=== PATIENT | female | born 1950 | race Caucasian/White ===

== ENCOUNTER 2017-06-03 11:03 | Inpatient (IN) | payer OTHER, MEDICARE ==
[2017-06-03] VITALS (10 sets, daily range): BP systolic 112–253; BP diastolic 63–118; PULSE 83–117; RESP 16–24; TEMP 98.5–98.7; O2SAT 96–100
[~2017-06-03] VITALS: Ht 175.3 cm; Wt 129.0 kg
--- NOTE | 2017-06-03 12:01 | RADRPT ---
EXAM DATE/TIME: 06/03/2017 11:49 [facility] COMPARISON: No previous studies available for comparison. INDICATIONS : Syncope, dizzy MEDICAL HISTORY : None. SURGICAL HISTORY : None. ENCOUNTER: Initial ACUITY: 1 day PAIN SCORE: 0/10 LOCATION: Bilateral chest FINDINGS: A single view of the chest demonstrates the lungs to be symmetrically, but under aerated without evid ence of mass, infiltrate or effusion. The cardiomediastinal contours are unremarkable. Osseous stru ctures are intact. CONCLUSION: Hypoinflation with no acute cardiopulmonary process. Tom Pace MD on June 03, 2017 at 11:58 Board Certified Radiologist. This report was verified electronically.
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
[2017-06-03] MEDS ORDERED: ASPI1TAB93 PO (12:20)
[2017-06-03] MEDS ORDERED: IBUP200C PO (12:20)
[2017-06-03 12:42] LABS: AUTOMATED NEUTROPHIL # 4.3 TH/MM3 (1.8-7.7); BASOPHIL % 0.5 % (0.0-2.0); EOSINOPHIL # 0.1 TH/MM3 (0-0.4); EOSINOPHIL % 1.5 % (0.0-4.0); HEMATOCRIT 41.8 % (39.0-51.0); HEMOGLOBIN 14.1 GM/DL (13.0-17.0); LYMPH % 18.5 % (9.0-44.0); LYMPHOCYTE # 1.1 TH/MM3 (1.0-4.8); MEAN CELL VOLUME 83.1 FL (80.0-100.0); MEAN CORPUSCULAR HGB CONC 33.7 % (32.0-36.0); MONO % 8.5 % (0.0-8.0); MONOCYTE # 0.5 TH/MM3 (0-0.9); PLATELET COUNT 221 TH/MM3 (150-450); RED BLOOD COUNT 5.03 MIL/MM3 (4.50-5.90); WHITE BLOOD COUNT 6.1 TH/MM3 (4.0-11.0)
[2017-06-03 12:49] LABS: BACTERIA, URINE RARE /hpf; BILIRUBIN, URINE NEG (NEG); BLOOD, URINE TRACE (NEG); GLUCOSE,URINE NEG (NEG); KETONE, URINE 40 mg/dL (NEG); NITRITE,URINE NEG (NEG); PH, URINE 5.5 (5.0-8.5); SQUAMOUS EPITHELIAL CELL URINE 4 /hpf (0-5); URINE COLOR YELLOW (YELLW/STRAW); URINE LEUKOCYTE ESTERASE NEG (NEG)
[2017-06-03 13:03] LABS: ALBUMIN 3.8 GM/DL (3.4-5.0); ALT (GPT) 19 U/L (12-78); AST (GOT) 21 U/L (15-37); BICARBONATE 23.7 MEQ/L (21.0-32.0); BLOOD UREA NITROGEN 15 MG/DL (7-18); CALCIUM 8.7 MG/DL (8.5-10.1); CHLORIDE 108 MEQ/L (98-107); CREATININE 0.69 MG/DL (0.60-1.30); GLOMERULAR FILTRATION RATE 115 ML/MIN (>89); GLUCOSE,RANDOM 89 MG/DL (74-106); MAGNESIUM 2.2 MG/DL (1.5-2.5); SODIUM (NA) 140 MEQ/L (136-145)
[2017-06-03 13:07] LABS: ALKALINE PHOSPHATASE 126 U/L (45-117); TOTAL BILIRUBIN ADULT 0.7 MG/DL (0.2-1.0); TOTAL PROTEIN 7.9 GM/DL (6.4-8.2); TROPONIN I LESS THAN 0.02 NG/ML (0.02-0.05)
--- NOTE | 2017-06-03 13:30 | RADRPT ---
EXAM DATE/TIME: 06/03/2017 12:49 [facility] COMPARISON: No previous studies available for comparison. INDICATIONS : Dizziness. RADIATION DOSE: 56.35 CTDIvol (mGy) MEDICAL HISTORY : None SURGICAL HISTORY : None. ENCOUNTER: Initial ACUITY: 1 day PAIN SCALE: 0/10 LOCATION: cranial TECHNIQUE: Multiple contiguous axial images were obtained of the head. Using automated exposure control and adj ustment of the mA and/or kV according to patient size, radiation dose was kept as low as reasonably a chievable to obtain optimal diagnostic quality images. DICOM format image data is available electro nically for review and comparison. FINDINGS: CEREBRUM: The ventricles are normal for age. Questionable area of diminished attenuation in the medial aspect o f the right temporal lobe just medial to the temporal horn of the right lateral ventricle No extra-ax ial fluid collections are seen. POSTERIOR FOSSA: The cerebellum and brainstem are intact. The 4th ventricle is midline. The cerebellopontine angle i s unremarkable. EXTRACRANIAL: The visualized portion of the orbits is intact. SKULL: The calvaria is intact. No evidence of skull fracture. CONCLUSION: 1. Questionable area of diminished attenuation in the medial aspect of the right temporal lobe could simply represent artifact due to a prominent regional sulci. However, infarct or focal edema cannot b e excluded. MRI without contrast is recommended for further characterization. 2. Otherwise negative. Tom Pace MD on June 03, 2017 at 13:12 Board Certified Radiologist. This report was verified electronically.
[2017-06-03] MEDS ORDERED: niCARdipine INJ 25 MG in SODIUM CHLOR 0.9% 250 ML INJ 240 ML IV PRN ×2 (13:45→17:30)
[2017-06-03] MEDS ORDERED: ACETAMINOPHEN 325 MG TAB PO PRN (14:00)
[2017-06-03] MEDS ORDERED: ONDANSETRON HCL 4 MG/2 ML VIAL IV PUSH PRN (14:00)
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
[2017-06-03] MEDS ORDERED: LABETALOL HCL 100 MG/20 ML VIAL IV PUSH PRN (17:00)
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
[2017-06-03] MEDS ORDERED: ALPRAZolam 0.25 MG TAB PO PRN (17:30)
--- NOTE | 2017-06-03 18:55 | RADRPT ---
EXAM DATE/TIME: 06/03/2017 18:11 [facility] COMPARISON: CT BRAIN W/O CONTRAST, June 03, 2017, 12:49. INDICATIONS : CVA. Dizziness. MEDICAL HISTORY : Hypertension. SURGICAL HISTORY : Cholecystectomy. Knee surgery. ENCOUNTER: Subsequent ACUITY: 1 day PAIN SCORE: 0/10 LOCATION: head. TECHNIQUE: Multiplanar, multisequence MRI of the brain was performed without contrast. FINDINGS: There is no evidence for intracranial hemorrhage, mass effect, mass lesions, edema, or extra-axial fl uid collections. There are no signs of acute infarction for technique. The diffusion portion is unre markable. Slight degree of brain atrophy is seen. Slight periventricular white matter changes are see n nonspecific mostly consistent with chronic small vessel ischemic changes. The questioned area decre ased attenuation in the right mesial temporal lobe is related to volume averaging with adjacent CSF. CONCLUSION: Chronic atrophic and small vessel ischemic changes without any evidence for acute hem orrhage or mass effect. Aylin Arias MD on June 03, 2017 at 18:51 Board Certified Radiologist. This report was verified electronically.
[2017-06-03] MEDS ORDERED: CHLORHEXIDINE GLUCONATE 2 % 1 PACK (2 CLOTHS)(extra cloths) TOPICAL PRN (21:00)
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
[2017-06-03] MEDS: CARVEDILOL 12.5 MG TAB PO SCH (23:20)
[2017-06-03] MEDS ORDERED: IOHEXOL 350 MG/ML 10 ML VIAL (for RAD DIAG) IVCONTRAST ONE (23:20)
--- NOTE | 2017-06-03 23:48 | RADRPT ---
EXAM DATE/TIME: 06/03/2017 22:53 [facility] COMPARISON: CTA BRAIN W 3D RECON, June 03, 2017, 22:53. MRI BRAIN W/O CONTRAST, June 03, 2017, 18:11. U S CAROTID ARTERIES, June 03, 2017, 14:19. INDICATIONS : Dizziness, syncope. IV CONTRAST: 75 cc Omnipaque 350 (iohexol) IV ; Cumulative dose for multiple exams. RADIATION DOSE: 10.2 CTDIvol (mGy) ; Combined studies MEDICAL HISTORY : Hypertension. TIA. SURGICAL HISTORY : None. ENCOUNTER: Initial ACUITY: 1 day PAIN SCALE: 0/10 LOCATION: neck Elevated flow velocities and ICA/CCA ratios have been found to correlate with increased degrees of vessel stenosis, calculated as percentage of diameter relative to a normal segment of distal ICA/CCA. TECHNIQUE: Volumetric scanning was performed using a multirow detector CT scanner. The data was post processed with a variety of visualization algorithms including full-volume maximum intensity projection, multip lanar sliding thin-slab reformation, curved-planar reformation, and surface-rendering techniques. Us ing automated exposure control and adjustment of the mA and/or kV according to patient size, radiatio n dose was kept as low as reasonably achievable to obtain optimal diagnostic quality images. DICOM f ormat image data is available electronically for review and comparison. FINDINGS: AORTIC ARCH: There is a three-vessel origin of the great vessels from the aorta. No evidence of ostial narrowing. RIGHT CAROTID: The common carotid artery is intact. The carotid bulb has a normal configuration without ulceration o r narrowing. The internal carotid artery lumen is smooth without stenosis. The external carotid hussain ry is intact. LEFT CAROTID: The common carotid artery is intact. The carotid bulb has a normal configuration without ulceration or narrowing. The internal carotid artery lumen is smooth without stenosis. The external carotid ar ronak is intact. VERTEBRALS: The vertebral arteries have a symmetric diameter. No stenotic lesions are seen. CONCLUSION: There is no evidence for hemodynamically significant stenosis. Leo Peace MD on June 03, 2017 at 23:43 Board Certified Radiologist. This report was verified electronically.
--- NOTE | 2017-06-03 23:58 | RADRPT ---
EXAM DATE/TIME: 06/03/2017 22:53 [facility] COMPARISON: CT BRAIN W/O CONTRAST, June 03, 2017, 12:49. CTA CAROTID ARTERIES W 3D RECON, June 03, 2017, 22:53. MRI BRAIN W/O CONTRAST, June 03, 2017, 18:11. US CAROTID ARTERIES, June 03, 2017, 1 4:19. INDICATIONS : Dizziness, syncope. IV CONTRAST: 75 cc Omnipaque 350 (iohexol) IV ; Cumulative dose for multiple exams. RADIATION DOSE: 10.2 CTDIvol (mGy) ; Combined studies MEDICAL HISTORY : Hypertension. TIA. SURGICAL HISTORY : None. ENCOUNTER: Initial ACUITY: 1 day PAIN SCALE: 0/10 LOCATION: cranial TECHNIQUE: Volumetric scanning was performed using a multi-row detector CT scanner. The data was post processed with a variety of visualization algorithms including full volume maximum intensity projection, multi -planar sliding thin slab reformation, curved planar reformation, and surface rendering techniques. Using automated exposure control and adjustment of the mA and/or kV according to patient size, radiat ion dose was kept as low as reasonably achievable to obtain optimal diagnostic quality images. DICO M format image data is available electronically for review and comparison. FINDINGS: There is excellent visualization of the major intracranial arteries out to the second-order branch ve ssels. There is no evidence for aneurysm, vessel truncation or stenosis, and no evidence for vascula r malformation. CONCLUSION: Normal examination. Leo Peace MD on June 03, 2017 at 23:56 Board Certified Radiologist. This report was verified electronically.
[2017-06-04] VITALS (15 sets, daily range): BP systolic 148–179; BP diastolic 68–77; PULSE 70–87; RESP 14–27; TEMP 98–98.9; O2SAT 96–100
[2017-06-04] MEDS: CHLORHEXIDINE GLUCONATE 2 % 1 PACK (2 CLOTHS)(taper/protocol) TOPICAL SCH (04:00)
[2017-06-04 05:36] LABS: BICARBONATE 26.7 MEQ/L (21.0-32.0); CALCIUM 8.9 MG/DL (8.5-10.1); CREATININE 0.57 MG/DL (0.50-1.00)
[2017-06-04 05:40] LABS: CHOLESTEROL/ HDL RATIO 5.97 RATIO; HDL CHOLESTEROL 33.8 MG/DL (40.0-60.0)
[2017-06-04] MEDS ORDERED: METOPROLOL SUCCINATE 25 MG EXTENDED RELEASE TAB PO SCH (09:00)
[2017-06-04] MEDS: HYDROCHLOROTHIAZIDE 25 MG TAB PO SCH (09:19)
[2017-06-04] MEDS: CARVEDILOL 12.5 MG TAB PO SCH ×2 (09:19→20:41)
--- NOTE | 2017-06-04 11:14 | RADRPT ---
EXAM DATE/TIME: 06/04/2017 08:27 [facility] COMPARISON: No previous studies available for comparison. INDICATIONS : Uncontrolled hypertension. MEDICAL HISTORY : Hypertension. Syncope. Athritis. SURGICAL HISTORY : Cholecystectomy. Tendon repair. ENCOUNTER: Initial ACUITY: 2 days PAIN SCORE: 0/10 LOCATION: Bilateral flank PEAK FLOW VELOCITIES (cm/sec): AORTA: 109.3 PROXIMAL: 99.0 MID: 109.3 DISTAL: 106.7 RIGHT RENAL ARTERY: PROXIMAL: 100.5 MID: 69.4 DISTAL: 76.4 RENAL ARTERY RATIO: 0.92 ARCUATE ARTERY RESISTIVE INDEX: Upper: UTO Mid: 0/7 Lower: 0.7 LEFT RENAL ARTERY: PROXIMAL: 88.9 MID: 99.7 DISTAL: 84.2 RENAL ARTERY RATIO: 0.91 ARCUATE ARTERY RESISTIVE INDEX: Upper: 0.6 Mid: 0.7 Lower: 0.8 FINDINGS: Renal artery and vein mapping as listed above. The kidneys have a normal sonographic appearance without evidence of hydronephrosis, suspicious osvaldo s or nephrolithiasis. CONCLUSION: 1. Normal Doppler evaluation of the renal arteries without findings characteristic of renal artery st enosis. 2. Normal sonographic appearance of the kidneys without evidence of hydronephrosis, suspicious masses or nephrolithiasis. Raji Rico MD on June 04, 2017 at 11:07 Board Certified Radiologist. This report was verified electronically.
[2017-06-04] MEDS ORDERED: ICU - D/C ICU ELECTROLYTE ORDERS PRN (12:15)
[2017-06-04] MEDS ORDERED: ICU - SODIUM PHOSPHATE 30 MMOL/NS 250 ML IV PRN ×2 (12:15)
[2017-06-04] MEDS ORDERED: ICU - CALL ORDERING PHYSICIAN PRN (12:15)
[2017-06-04] MEDS ORDERED: ICU - MAGNESIUM SULFATE 4 GM/NS 100 ML IV PRN ×2 (12:15)
[2017-06-04] MEDS ORDERED: ICU - POTASSIUM PHOSPHATE MONOBASIC 500 MG TAB PO PRN (12:15)
[2017-06-04] MEDS ORDERED: ICU - POTASSIUM CHLORIDE/AQUEOUS SOLN 40 MEQ/100 ML IVPB IV PRN (12:15)
[2017-06-04] MEDS ORDERED: ICU - POTASSIUM PHOSPHATE 30 MMOL/NS 250 ML IV PRN ×2 (12:15)
[2017-06-04] MEDS ORDERED: ICU - POTASSIUM CHLORIDE/AQUEOUS SOLN 20 MEQ/100 ML IVPB IV PRN (12:15)
[2017-06-04] MEDS ORDERED: POTASSIUM CHLORIDE 25 MEQ EFFERVESCENT TAB PO PRN (12:15)
[2017-06-04] MEDS ORDERED: ICU - MAGNESIUM SULFATE 2 GM/NS 100 ML IV PRN ×2 (12:15)
[2017-06-04] MEDS ORDERED: ICU - MAGNESIUM OXIDE 400 MG TAB PO PRN (12:15)
--- NOTE | 2017-06-04 13:31 | HHI.PR ---
Subjective Remarks in no acute distress. denies headache, focal weakness, chest pain or dizziness. BP overall improved. d/w the RN. Objective Vitals Vital Signs Date Time Temp Pulse Resp B/P (MAP) Pulse Ox O2 Delivery O2 Flow Rate FiO2 06/04/17 10:00 72 06/04/17 09:00 78 22 148/68 (94) 100 06/04/17 08:00 98.0 79 17 173/77 (109) 98 06/04/17 08:00 78 06/04/17 07:00 80 16 160/76 (104) 98 06/04/17 06:00 76 06/04/17 04:01 98.6 74 15 155/70 (98) 96 06/04/17 04:00 76 06/04/17 02:00 84 06/04/17 00:00 98.9 87 22 160/71 (100) 97 06/04/17 00:00 87 06/03/17 22:00 87 06/03/17 20:00 98.7 83 20 138/65 (89) 98 06/03/17 20:00 83 06/03/17 19:00 98.7 88 24 112/63 (79) 06/03/17 19:00 81 113/76 06/03/17 18:45 86 128/76 06/03/17 18:30 92 144/52 06/03/17 18:00 117 06/03/17 16:30 108 186/87 06/03/17 16:15 117 196/98 06/03/17 16:00 117 06/03/17 16:00 113 224/108 06/03/17 15:00 107 06/03/17 15:00 98.6 106 22 211/101 (137) 98 06/03/17 14:45 89 198/86 06/03/17 13:45 96 18 236/103 (147) 99 Room Air I/O 06/03/17 06/03/17 06/03/17 06/04/17 06/04/17 06/04/17 07:00 15:00 23:00 07:00 15:00 23:00 # Voids 3 Result Diagram: 06/03/17 1218 06/04/17 0450 Imaging Last Impressions Renal Ultrasound 06/04/17 0000 Signed Impressions: Service Date/Time: May 08:27 - CONCLUSION: 1. Normal Doppler evaluation of the renal arteries without findings characteristic of renal artery stenosis. 2. Normal sonographic appearance of the kidneys without evidence of hydronephrosis, suspicious masses or nephrolithiasis. Raji Rico MD Brain MRI 06/03/17 1718 Signed Impressions: Service Date/Time: Saturday, June 03, 2017 18:11 - CONCLUSION: Chronic atrophic and small vessel ischemic changes without any evidence for acute hemorrhage or mass effect. Aylin Arias MD Head CT 06/03/17 1140 Signed Impressions: Service Date/Time: Saturday, June 03, 2017 12:49 - CONCLUSION: 1. Questionable area of diminished attenuation in the medial aspect of the right temporal lobe could simply represent artifact due to a prominent regional sulci. However, infarct or focal edema cannot be excluded. MRI without contrast is recommended for further characterization. 2. Otherwise negative. Tom Pace MD Chest X-Ray 06/03/17 1140 Signed Impressions: Service Date/Time: Saturday, June 03, 2017 11:49 - CONCLUSION: Hypoinflation with no acute cardiopulmonary process. Tom Pace MD Neck CTA 06/03/17 0000 Signed Impressions: Service Date/Time: Saturday, June 03, 2017 22:53 - CONCLUSION: There is no evidence for hemodynamically significant stenosis. Leo Peace MD Head CTA 06/03/17 0000 Signed Impressions: Service Date/Time: Saturday, June 03, 2017 22:53 - CONCLUSION: Normal examination. Leo Peace MD Carotid Artery Ultrasound 06/03/17 0000 Signed Impressions: Service Date/Time: Saturday, June 03, 2017 14:19 - CONCLUSION: Limited visualization of the right because of tortuosity. There is some elevation of both velocity and ratios. CT angiography would be of benefit. Ken Dean MD FACR Objective Remarks GENERAL: This is a well-nourished, well-developed patient, in no apparent distress. CARDIOVASCULAR: Regular rate and regular rhythm without murmurs, gallops, or rubs. RESPIRATORY: Clear to auscultation. Breath sounds equal bilaterally. No wheezes , rales, or rhonchi. GASTROINTESTINAL: Abdomen soft, non-tender, nondistended. Normal, active bowel sounds MUSCULOSKELETAL: Extremities without clubbing, cyanosis, or edema. NEURO: Alert & Oriented x4 to person, place, time, situation. Moves all ext x4 Medications and IVs Inpatient Medications Acetaminophen (Tylenol) 650 mg Q4H PRN PO PAIN 1-10/FEVER/HEADACHE; Start 06/03 at 14:00 Alprazolam (Xanax) 0.25 mg Q6H PRN PO anxiety Last administered on 06/03/17at 17 :43; Start 06/03/17 at 17:30 Carvedilol (Coreg) 12.5 mg Q12HR PO Last administered on 06/04/17at 09:19; Start 06/03/17 at 22:30 Chlorhexidine Gluconate (Chlorhexidine 2% Cloth) 3 pack UNSCH PRN TOPICAL HYGIENIC CARE; Start 06/03/17 at 21:00; Stop 06/08/17 at 20:53 Hydrochlorothiazide (Hydrodiuril) 25 mg DAILY PO Last administered on at 09:19; Start 06/04/17 at 09:00 Labetalol HCl (Trandate Inj) 20 mg Q4H PRN IV PUSH SYS BP GREATER THAN 180 MMHG Last administered on 06/03/17at 17:29; Start 06/03/17 at 17:00 Magnesium Oxide (Mag-Ox) 800 mg UNSCH PRN PO ELECTROLYTE REPLACEMENT; Start at 12:15 Magnesium Sulfate 2 gm/Sodium Chloride 104 ml @ 52 mls/hr UNSCH PRN IV ELECTROLYTE REPLACEMENT; Start 06/04/17 at 12:15 Magnesium Sulfate 4 gm/Sodium Chloride 108 ml @ 54 mls/hr UNSCH PRN IV ELECTROLYTE REPLACEMENT; Start 06/04/17 at 12:15 Metoprolol Succinate (Toprol Xl) 25 mg DAILY PO ; Start 06/04/17 at 09:00; Stop 06/04/17 at 09:00; Status DC Miscellaneous Information ICU - CALL ORDERING PHYSIC... UNSCH PRN .XX SEE DOSE INSTRUCTIONS; Start 06/04/17 at 12:15 Nicardipine HCl 25 mg/Sodium Chloride 250 ml @ 50 mls/hr TITRATE PRN IV Blood pressure management; Start 06/03/17 at 17:30 Ondansetron HCl (Zofran Inj) 4 mg Q8HR PRN IV PUSH NAUSEA; Start 06/03/17 at 14 :00 Potassium Phosphate (K-Phos) 2,000 mg UNSCH PRN PO ELECTROLYTE REPLACEMENT; Start 06/04/17 at 12:15 Potassium Phosphate 30 mmol/ Sodium Chloride 260 ml @ 43.333 mls/ hr UNSCH PRN IV ELECTROLYTE REPLACEMENT; Start 06/04/17 at 12:15 Potassium Bicarb/ Potassium Chloride (K-Lyte Cl Eff) 50 meq UNSCH PRN PO ELECTROLYTE REPLACEMENT Last administered on 06/04/17at 12:29; Start 06/04/17 at 12:15 Potassium Chloride 100 ml @ 50 mls/hr UNSCH PRN IV ELECTROLYTE REPLACEMENT Last administered on 06/04/17at 12:30; Start 06/04/17 at 12:15 Sodium Phosphate 30 mmol/Sodium Chloride 260 ml @ 43.333 mls/ hr UNSCH PRN IV ELECTROLYTE REPLACEMENT; Start 06/04/17 at 12:15 A/P Problem List: (1) Hypertensive emergency ICD Code: I16.1 - Hypertensive emergency Status: Acute (2) Syncope ICD Code: R55 - Syncope and collapse Status: Acute Assessment and Plan A/P - Hypertensive emergency off the Cardene drip- started on Coreg and HCTZ- will add amlodipine and continue to monitor closely. -syncope MRI brain with no acute abnormality- CTA neck with no significant stenosis. EEG and echo pending. neurology consult appreciated. hypokalemia; replaced per electrolyte protocol. -dyslipidemia; start on statin. -DVT prophylaxis with Lovenox. transfer to telemetry later this evening if BP stable. d/w the RN. Discharge Planning dc home tomorrow if BP stable- pending echo and EEG. Problem Qualifiers (1) Syncope: Qualified Codes: R55 - Syncope and collapse Jaison Jordan MD Jun 04, 2017 13:31
[2017-06-04] MEDS: amLODIPine BESYLATE 5 MG TAB PO SCH (13:34)
[2017-06-04] MEDS ORDERED: ENALAPRILAT 1.25 MG/ML VIAL IV PUSH PRN (13:45)
--- NOTE | 2017-06-04 14:36 | EKG ---
Date Performed: 06/03/2017 Time Performed: 12:16:37 PTAGE: 66 years EKG: Sinus rhythm POSSIBLE LEFT ATRIAL ENLARGEMENT RIGHT BUNDLE BRANCH BLOCK LEFT ANTERIOR FASCICULAR BLOCK ABNORMAL E CG NO PREVIOUS TRACING DOCTOR: Yovanny Calloway Interpretating Date/Time 06/04/2017 14:30:02
--- NOTE | 2017-06-04 14:53 | EKG ---
Date Performed: 06/03/2017 Time Performed: 16:41:52 PTAGE: 66 years EKG: SINUS TACHYCARDIA RIGHT BUNDLE BRANCH BLOCK LEFT ANTERIOR FASCICULAR BLOCK ABNORMAL ECG PREVIOUS TRACING : 06/03/2017 12.16 Since the prior tracing, there has been no significant barnhart DOCTOR: Yovanny Calloway Interpretating Date/Time 06/04/2017 14:47:00
[2017-06-04] MEDS ORDERED: ATORVASTATIN 10 MG TAB PO SCH (21:00)
[2017-06-05] VITALS: BP 180/75; PULSE 76; RESP 19; TEMP 97; O2SAT 100
[2017-06-05] MEDS: CHLORHEXIDINE GLUCONATE 2 % 1 PACK (2 CLOTHS)(taper/protocol) TOPICAL SCH (02:41)
[2017-06-05 05:00] VITALS: BP 156/69; PULSE 77; RESP 18; TEMP 97; O2SAT 99
--- NOTE | 2017-06-05 05:03 | MG ---
cc: MESFIN CISNEROS M.D. Lab No: [id number] Date: 06/04/2017 Age: Sex: F Race: TECHNIQUE This is a 17-channel EEG. DESCRIPTION The background rhythm reveals generalized slowing in the theta frequency at roughly 5-6 Hz. The amplitude is 5-10 microvolts. No lateralizing features are identified. No epileptiform discharges are seen. There is some eye movement artifact. Photic stimulation results in a modest driving response. INTERPRETATION Abnormal study consistent with a [id number]-ojsgigpp encephalopathy. MD CARLEEN Jaquez/JULI /8:34 PM /4:57 AM
[2017-06-05 05:49] LABS: CALCIUM 8.9 MG/DL (8.5-10.1); CREATININE 0.67 MG/DL (0.50-1.00)
--- NOTE | 2017-06-05 06:49 | HHI.PR ---
Review/Management Daily Summary 06/05 no syncope recurrence eeg nonepileptiform mri brain ok cta angio ok neuro martell no addtl intervention will follow prn Subjective Subjective Comments No acute events reported No headache Active Medications Current Medications Medications (Trade) Dose Ordered Sig/Christi Route Start Time Stop Time Status Last Admin (Zofran Inj) 4 mg Q8HR PRN IV PUSH 06/03/17 14:00 (Tylenol) 650 mg Q4H PRN PO 06/03/17 14:00 (Trandate Inj) 20 mg Q4H PRN IV PUSH 06/03/17 17:00 06/03/17 17:29 Nicardipine HCl 25 mg/Sodium Chloride 250 ml @ 50 mls/hr TITRATE PRN IV 06/03/17 17:30 (Xanax) 0.25 mg Q6H PRN PO 06/03/17 17:30 06/03/17 17:43 Miscellaneous Information Patient in critical care unit? Ass... Q361D .XX 06/03/17 21:00 06/03/17 21:00 (Chlorhexidine 2% Cloth) 3 pack DAILY@04 TOPICAL 06/04/17 04:00 06/08/17 04:01 06/04/17 04:00 (Chlorhexidine 2% Cloth) 3 pack UNSCH PRN TOPICAL 06/03/17 21:00 06/08/17 20:53 (Coreg) 12.5 mg Q12HR PO 06/03/17 22:30 06/04/17 20:41 (Hydrodiuril) 25 mg DAILY PO 06/04/17 09:00 06/04/17 09:19 Miscellaneous Information D/C ICU ELECTROLYTE ORDERS... UNSCH PRN .XX 06/04/17 12:15 Miscellaneous Information ICU - CALL ORDERING PHYSIC... UNSCH PRN .XX 06/04/17 12:15 Potassium Chloride 100 ml @ 25 mls/hr UNSCH PRN IV 06/04/17 12:15 (K-Lyte Cl Eff) 50 meq UNSCH PRN PO 06/04/17 12:15 06/04/17 12:29 Potassium Chloride 100 ml @ 50 mls/hr UNSCH PRN IV 06/04/17 12:15 06/04/17 12:30 Magnesium Sulfate 4 gm/Sodium Chloride 108 ml @ 54 mls/hr UNSCH PRN IV 06/04/17 12:15 Magnesium Sulfate 2 gm/Sodium Chloride 104 ml @ 52 mls/hr UNSCH PRN IV 06/04/17 12:15 (Mag-Ox) 800 mg UNSCH PRN PO 06/04/17 12:15 Sodium Phosphate 30 mmol/Sodium Chloride 260 ml @ 43.333 mls/ hr UNSCH PRN IV 06/04/17 12:15 (K-Phos) 2,000 mg UNSCH PRN PO 06/04/17 12:15 Potassium Phosphate 30 mmol/ Sodium Chloride 260 ml @ 43.333 mls/ hr UNSCH PRN IV 06/04/17 12:15 (Norvasc) 5 mg DAILY PO 06/04/17 13:30 06/04/17 13:34 (Lipitor) 10 mg HS PO 06/04/17 21:00 06/04/17 20:41 (Vasotec Inj) 1.25 mg Q8H PRN IV PUSH 06/04/17 13:45 06/05/17 02:36 Allergies Allergies Coded Allergies No Known Allergies (Unverified06/03/17) Exam I&O / VS Vital Signs Date Time Temp Pulse Resp B/P (MAP) Pulse Ox O2 Delivery O2 Flow Rate FiO2 06/05/17 05:00 97.0 77 18 156/69 (98) 99 06/05/17 00:00 97.0 76 19 180/75 (110) 100 06/04/17 22:00 73 06/04/17 20:00 73 06/04/17 20:00 98.3 73 14 157/70 (99) 98 06/04/17 18:00 75 06/04/17 16:00 77 06/04/17 16:00 98.0 77 22 166/70 (102) 98 06/04/17 14:00 73 06/04/17 12:00 70 06/04/17 12:00 98.3 70 27 179/73 (108) 98 06/04/17 10:00 72 06/04/17 09:00 78 22 148/68 (94) 100 06/04/17 08:00 98.0 79 17 173/77 (109) 98 06/04/17 08:00 78 06/04/17 07:00 80 16 160/76 (104) 98 Objective Radiology Results Last 48 hours Impressions Renal Ultrasound 06/04/17 0000 Signed Impressions: Service Date/Time: May 08:27 - CONCLUSION: 1. Normal Doppler evaluation of the renal arteries without findings characteristic of renal artery stenosis. 2. Normal sonographic appearance of the kidneys without evidence of hydronephrosis, suspicious masses or nephrolithiasis. Raji Rico MD Brain MRI 06/03/17 1718 Signed Impressions: Service Date/Time: Saturday, June 03, 2017 18:11 - CONCLUSION: Chronic atrophic and small vessel ischemic changes without any evidence for acute hemorrhage or mass effect. Aylin Arias MD Head CT 06/03/17 1140 Signed Impressions: Service Date/Time: Saturday, June 03, 2017 12:49 - CONCLUSION: 1. Questionable area of diminished attenuation in the medial aspect of the right temporal lobe could simply represent artifact due to a prominent regional sulci. However, infarct or focal edema cannot be excluded. MRI without contrast is recommended for further characterization. 2. Otherwise negative. Tom Pace MD Chest X-Ray 06/03/17 1140 Signed Impressions: Service Date/Time: Saturday, June 03, 2017 11:49 - CONCLUSION: Hypoinflation with no acute cardiopulmonary process. Tom Pace MD Micro and Labs Laboratory Tests Test 06/05/17 04:38 Blood Urea Nitrogen 14 Creatinine 0.67 Random Glucose 101 Calcium Level 8.9 Sodium Level 140 Potassium Level 3.4 Chloride Level 106 Carbon Dioxide Level 24.0 Anion Gap 10 Estimat Glomerular Filtration Rate 88 Huseyin Vasquez MD Jun 05, 2017 06:49
[2017-06-05 08:00] VITALS: BP_SYST 162; BP_SYST 62; BP_DIAS 64; PULSE 85; RESP 18; TEMP 97.3; O2SAT 99
[2017-06-05 09:34] VITALS: PULSE 88
[2017-06-05] MEDS: HYDROCHLOROTHIAZIDE 25 MG TAB PO SCH (09:51)
[2017-06-05] MEDS: CARVEDILOL 12.5 MG TAB PO SCH (09:52)
[2017-06-05] MEDS: amLODIPine BESYLATE 5 MG TAB PO SCH (09:52)
[2017-06-05 10:11] VITALS: PULSE 86
[2017-06-05] MEDS ORDERED: LIPI10TA PO (10:27)
[2017-06-05] MEDS ORDERED: HYDR25TA5 PO (10:27)
[2017-06-05] MEDS ORDERED: CARV12.5 PO (10:27)
[2017-06-05] MEDS ORDERED: AMLO10 PO (10:27)
--- NOTE | 2017-06-05 10:32 | HHI.PR ---
Subjective Remarks Follow-up hypertensive urgency/syncope 06/05/17-patient seen and examined, no recurrent syncopal episode. BP trending down. Denies any headaches or visual changes. No acute event overnight. Would like to be discharged home. Objective Vitals Vital Signs Date Time Temp Pulse Resp B/P (MAP) Pulse Ox O2 Delivery O2 Flow Rate FiO2 06/05/17 10:11 86 06/05/17 09:34 88 06/05/17 08:00 97.3 85 18 162/64 (96) 99 06/05/17 05:00 97.0 77 18 156/69 (98) 99 06/05/17 00:00 97.0 76 19 180/75 (110) 100 06/04/17 22:00 73 06/04/17 20:00 73 06/04/17 20:00 98.3 73 14 157/70 (99) 98 06/04/17 18:00 75 06/04/17 16:00 77 06/04/17 16:00 98.0 77 22 166/70 (102) 98 06/04/17 14:00 73 06/04/17 12:00 70 06/04/17 12:00 98.3 70 27 179/73 (108) 98 I/O 06/04/17 06/04/17 06/04/17 06/05/17 06/05/17 06/05/17 07:00 15:00 23:00 07:00 15:00 23:00 Intake Total 1144 ml 240 ml Balance 1144 ml 240 ml Intake Oral 944 ml 240 ml IV Total 200 ml # Voids 6 2 # Bowel Movements 1 0 Result Diagram: 06/03/17 1218 06/05/17 0438 Imaging Last Impressions Renal Ultrasound 06/04/17 0000 Signed Impressions: Service Date/Time: May 08:27 - CONCLUSION: 1. Normal Doppler evaluation of the renal arteries without findings characteristic of renal artery stenosis. 2. Normal sonographic appearance of the kidneys without evidence of hydronephrosis, suspicious masses or nephrolithiasis. Raji Rico MD Brain MRI 06/03/17 1718 Signed Impressions: Service Date/Time: Saturday, June 03, 2017 18:11 - CONCLUSION: Chronic atrophic and small vessel ischemic changes without any evidence for acute hemorrhage or mass effect. Aylin Arias MD Head CT 06/03/17 1140 Signed Impressions: Service Date/Time: Saturday, June 03, 2017 12:49 - CONCLUSION: 1. Questionable area of diminished attenuation in the medial aspect of the right temporal lobe could simply represent artifact due to a prominent regional sulci. However, infarct or focal edema cannot be excluded. MRI without contrast is recommended for further characterization. 2. Otherwise negative. Tom Pace MD Chest X-Ray 06/03/17 1140 Signed Impressions: Service Date/Time: Saturday, June 03, 2017 11:49 - CONCLUSION: Hypoinflation with no acute cardiopulmonary process. Tom Pace MD Neck CTA 06/03/17 0000 Signed Impressions: Service Date/Time: Saturday, June 03, 2017 22:53 - CONCLUSION: There is no evidence for hemodynamically significant stenosis. Leo Peace MD Head CTA 06/03/17 0000 Signed Impressions: Service Date/Time: Saturday, June 03, 2017 22:53 - CONCLUSION: Normal examination. Leo Peace MD Carotid Artery Ultrasound 06/03/17 0000 Signed Impressions: Service Date/Time: Saturday, June 03, 2017 14:19 - CONCLUSION: Limited visualization of the right because of tortuosity. There is some elevation of both velocity and ratios. CT angiography would be of benefit. Ken Dean MD FACR Objective Remarks GENERAL: NAD SKIN: Warm and dry. HEAD: Normocephalic. EYES: No scleral icterus. No injection or drainage. NECK: Supple, trachea midline. No JVD or lymphadenopathy. CARDIOVASCULAR: Regular rate and rhythm without murmurs, gallops, or rubs. RESPIRATORY: Breath sounds equal bilaterally. No accessory muscle use. GASTROINTESTINAL: Abdomen soft, non-tender, nondistended. MUSCULOSKELETAL: No cyanosis, or edema. BACK: Nontender without obvious deformity. No CVA tenderness. Procedures None A/P Problem List: (1) Hypertensive emergency ICD Code: I16.1 - Hypertensive emergency Status: Acute (2) Syncope ICD Code: R55 - Syncope and collapse Status: Acute (3) Hyperlipidemia ICD Code: E78.5 - Hyperlipidemia, unspecified Assessment and Plan 66-year-old female with - Hypertensive emergency-resolved s/p Cardene drip- Currently on Coreg and hydrochlorothiazide as well as Norvasc 5 mg however will increase it to 10 mg daily . 2D echo pending -Syncope MRI brain with no acute abnormality- CTA neck with no significant stenosis. EEG non-epileptiform neurology consult appreciated. hypokalemia; replaced per electrolyte protocol. -dyslipidemia; continue statin. -DVT prophylaxis with Lovenox. Problem Qualifiers (1) Syncope: Qualified Codes: R55 - Syncope and collapse Stas Hernandez MD Jun 05, 2017 10:32
--- NOTE | 2017-06-05 10:35 | HHI.DS ---
Discharge Summary Admission Date Jun 03, 2017 at 13:54 Discharge Date: Jun 05, 2017 Admitting Diagnosis Hypertensive emergency/syncope (1) Hypertensive emergency ICD Code: I16.1 - Hypertensive emergency Status: Acute (2) Syncope ICD Code: R55 - Syncope and collapse Status: Acute (3) Hyperlipidemia ICD Code: E78.5 - Hyperlipidemia, unspecified Procedures None Brief History - From Admission patient is a 66 y/o female with no known medical history was brought to ER after she passed out earlier today. she says that while she was driving she felt dizzy and then she passed out. she denies any chest pain, nausea or sob prior to the incident.she regained her consciousness after a few seconds. she says that she was ' shaky' at the time. she denies any headache, focal weakness or slurred speech. she says that she hasn't seen a physician for eight years. CBC/BMP: 06/03/17 1218 06/05/17 0438 Significant Findings Laboratory Tests Test 06/03/17 12:00 06/03/17 12:18 06/03/17 15:20 06/04/17 04:50 Urine Turbidity HAZY (CLEAR) Urine Protein 30 mg/dL (NEG-TRACE) Urine Ketones 40 mg/dL (NEG) Urine Occult Blood TRACE (NEG) Urine Bacteria RARE /hpf (NONE) Neutrophils (%) (Auto) 71.0 % (16.0-70.0) Monocytes (%) (Auto) 8.5 % (0.0-8.0) Alkaline Phosphatase 126 U/L (45-117) Chloride Level 108 MEQ/L (98-107) Troponin I LESS THAN 0.02 NG/ML Potassium Level 3.1 MEQ/L (3.5-5.1) Cholesterol Level 202 MG/DL (120-200) LDL Cholesterol 159 MG/DL (0-99) HDL Cholesterol 33.8 MG/DL (40.0-60.0) Test 06/05/17 04:38 Potassium Level 3.4 MEQ/L (3.5-5.1) Estimat Glomerular Filtration Rate 88 ML/MIN (>89) Imaging Last Impressions Renal Ultrasound 06/04/17 0000 Signed Impressions: Service Date/Time: May 08:27 - CONCLUSION: 1. Normal Doppler evaluation of the renal arteries without findings characteristic of renal artery stenosis. 2. Normal sonographic appearance of the kidneys without evidence of hydronephrosis, suspicious masses or nephrolithiasis. Raji Rico MD Brain MRI 06/03/17 1718 Signed Impressions: Service Date/Time: Saturday, June 03, 2017 18:11 - CONCLUSION: Chronic atrophic and small vessel ischemic changes without any evidence for acute hemorrhage or mass effect. Aylin Arias MD Head CT 06/03/17 1140 Signed Impressions: Service Date/Time: Saturday, June 03, 2017 12:49 - CONCLUSION: 1. Questionable area of diminished attenuation in the medial aspect of the right temporal lobe could simply represent artifact due to a prominent regional sulci. However, infarct or focal edema cannot be excluded. MRI without contrast is recommended for further characterization. 2. Otherwise negative. Tom Pace MD Chest X-Ray 06/03/17 1140 Signed Impressions: Service Date/Time: Saturday, June 03, 2017 11:49 - CONCLUSION: Hypoinflation with no acute cardiopulmonary process. Tom Pace MD Neck CTA 06/03/17 0000 Signed Impressions: Service Date/Time: Saturday, June 03, 2017 22:53 - CONCLUSION: There is no evidence for hemodynamically significant stenosis. Leo Peace MD Head CTA 06/03/17 0000 Signed Impressions: Service Date/Time: Saturday, June 03, 2017 22:53 - CONCLUSION: Normal examination. Leo Peace MD Carotid Artery Ultrasound 06/03/17 0000 Signed Impressions: Service Date/Time: Saturday, June 03, 2017 14:19 - CONCLUSION: Limited visualization of the right because of tortuosity. There is some elevation of both velocity and ratios. CT angiography would be of benefit. Ken Dean MD FACR PE at Discharge GENERAL: NAD SKIN: Warm and dry. HEAD: Normocephalic. EYES: No scleral icterus. No injection or drainage. NECK: Supple, trachea midline. No JVD or lymphadenopathy. CARDIOVASCULAR: Regular rate and rhythm without murmurs, gallops, or rubs. RESPIRATORY: Breath sounds equal bilaterally. No accessory muscle use. GASTROINTESTINAL: Abdomen soft, non-tender, nondistended. MUSCULOSKELETAL: No cyanosis, or edema. BACK: Nontender without obvious deformity. No CVA tenderness. Hospital Course Patient admitted secondary to hypertensive emergency was initially under the care of critical care medicine and patient was started on Cardene drip, which was subsequently switched to by mouth Coreg, hydrochlorothiazide and Norvasc. Neurology was consulted secondary to syncope for which patient had a negative EEG. She was subsequently transferred under the care of hospitalist and BP medication with adjusted accordingly with the addition of Norvasc. She was also started on statin. DVT prophylaxis were provided. Prior to discharge him on patient's condition improved and vitals remained stable. Pt Condition on Discharge: Good Discharge Disposition: Discharge Home Discharge Time: <= 30 minutes Discharge Instructions DIET: Follow Instructions for: Heart Healthy Diet Activities you can perform: Regular-No Restrictions Follow up Referrals: PCP Follow-up - 1 Week New Medications: Amlodipine (Norvasc) 10 Mg Tab 10 MG PO DAILY for Blood Pressure Management, #30 TAB 11 Refills Atorvastatin (Lipitor) 10 Mg Tab 10 MG PO HS for Cholesterol Management, #30 TAB 11 Refills Carvedilol (Coreg) 12.5 Mg Tab 12.5 MG PO Q12HR for Blood Pressure Management, #60 TAB 11 Refills Hydrochlorothiazide (Hydrochlorothiazide) 25 Mg Tab 25 MG PO DAILY for Blood Pressure Management, #30 TAB 11 Refills Continued Medications: Gpufjbh-Abaeonhmubiub-Ubpodnia (Excedrin Extra Strength) 250 Mg-250 Mg-65 Mg Tab 250 MG PO BID Ibuprofen (Ibuprofen) 200 Mg Cap 400 MG PO Q6H PRN for PAIN 1 TO 10 AND/OR AGITATION, CAP 0 Refills Stas Hernandez MD Jun 05, 2017 10:35
[2017-06-05 11:12] VITALS: BP 152/80
[2017-06-05] MEDS ORDERED: amLODIPine BESYLATE 5 MG TAB PO ONE (12:00)
--- NOTE | 2017-06-06 08:40 | ECHRPT ---
Indication: CVA/TIA CONCLUSIONS Normal left ventricular size. Mild concentric left ventricular hypertrophy. The left ventricular systolic function is grossly normal on limited imaging (EF 55%). Aortic valve sclerosis is present. BP: 236 / 103 HR: 96 Rhythm: MEASUREMENTS (Male / Female) Normal Values Technical Quality: 2D ECHO LV Diastolic Diameter PLAX 4.7 cm 4.2 - 5.9 / 3.9 - 5.3 cm LV Systolic Diameter PLAX 2.9 cm IVS Diastolic Thickness 1.3 cm 0.6 - 1.0 / 0.6 - 0.9 cm LVPW Diastolic Thickness 1.3 cm 0.6 - 1.0 / 0.6 - 0.9 cm LV Relative Wall Thickness 0.5 RV Internal Dim ED PLAX 2.5 cm LVOT Diameter 2.1 cm Aortic Root Diameter 3.0 cm LA Systolic Diameter LX 3.3 cm 3.0 - 4.0 / 2.7 - 3.8 cm M-MODE AV Cusp Separation MM 2.0 cm DOPPLER Mitral E Point Velocity 51.3 cm/s Mitral A Point Velocity 88.4 cm/s Mitral E to A Ratio 0.6 LV E' Lateral Velocity 5.7 cm/s Mitral E to LV E' Lateral Ratio 9.1 LV E' Septal Velocity 4.8 cm/s Mitral E to LV E' Septal Ratio 10.6 PV Peak Velocity 71.4 cm/s PV Peak Gradient 2.0 mmHg FINDINGS LEFT VENTRICLE Normal left ventricular size. Mild concentric left ventricular hypertrophy. The left ventricular systolic function is grossly normal on limited imaging. RIGHT VENTRICLE Normal right ventricular size and systolic function. LEFT ATRIUM The left atrial size is normal. RIGHT ATRIUM The right atrial size is normal. ATRIAL SEPTUM No atrial level shunt is demonstrated by color flow Doppler interrogation. AORTA The aortic root and proximal ascending aorta are normal in size on limited imaging. MITRAL VALVE Structurally normal mitral valve. No mitral valve stenosis or regurgitation. AORTIC VALVE Aortic valve sclerosis is present. TRICUSPID VALVE Structurally normal tricuspid valve. No tricuspid valve stenosis or regurgitation. PULMONARY VALVE No pulmonary valve regurgitation or stenosis. VESSELS The inferior vena cava was not well visualized. PERICARDIUM No pericardial effusion. Marco Antonio Garcia MD, FACC (Electronically Signed) Final Date:06 June 2017 08:39
== END 2017-06-05 11:47 | disposition home or self-care (01) | DRG 305 ==
LOC: NEPC 11:03 → NEDA 13:54 → EDSEX 13:54 → HIMN 15:15 → N06B 06-04 22:31
PROVIDERS: ADMIT Internal Medicine; ATTEND Hospitalist
DX: I16.1 Hypertensive emergency (principal); Z68.41 Body mass index [BMI] 40.0-44.9, adult; E66.01 Morbid (severe) obesity due to excess calories; E78.5 Hyperlipidemia, unspecified; R55 Syncope and collapse; I10 Essential (primary) hypertension; E87.6 Hypokalemia; M19.90 Unspecified osteoarthritis, unspecified site; F41.9 Anxiety disorder, unspecified
CPT/HCPCS: 70450; 70496; 70498; 70551; 71045; 80048; 80053; 80061; 81001; 82550; 82552; 83735; 84443; 84484; 85025; 87641; 93005; 93306; 93880; 93975; 95819; J3480; J7050; Q9967

== ENCOUNTER 2018-06-11 14:10 | Inpatient (IN) ==
--- NOTE | 2018-06-11 14:41 | ED ---
HPI General Chief Complaint: Altered Mental Status Stated Complaint: emergent/ams Time Seen by Provider: 06/11/18 14:19 Source: patient and EMS Mode of arrival: EMS Limitations: altered mental status History of Present Illness HPI narrative: 67-year-old female was brought in by EMS after a fall at home and altered mental status. Patient states that patient was getting out of the shower and fell. Patient was combative confusion when EMS arrived. Patient was given c-collar and backboard. Patient was transported to ED for evaluation. Patient's states that the patient has history of chronic hip pain and knee pain and does not new. Patient's states that patient was found to bathroom which between pieces of furniture and yelling for help. MD complaint: Reports altered mental status and confusion Onset (ago): hour(s) Timing confirmed by: family member Severity: moderate Consistency of symptoms: constant Associated symptoms: Reports denies other symptoms Related Data Home Medications Medication Instructions Recorded Confirmed Unable to Obtain Home Meds 06/11/18 06/11/18 Allergies Allergy/AdvReac Type Severity Reaction Status Date / Time No Known Allergies Allergy Unverified 06/03/17 12:20 Review of Systems ROS: all other systems reviewed are negative PMFSH Medical History Medical History HBP (high blood pressure) (Acute) Surgical history unknown (Acute) Social History Social History Substance History: No History of Abuse Second Hand Smoke Exposure: Yes Smoking Status: Current every day smoker Tobacco Type: Cigarettes How Often Do You Have a Drink Containing Alcohol: Never Recent Travel in [facility] within the Last 8 Weeks: No Recent Out of Country Travel within the Last 8 Weeks: No Immunization History Tetanus Immunization: >5 Years Exam Narrative Exam Narrative: GENERAL: Well-nourished, well-developed patient. SKIN: Focused skin assessment warm/dry. HEAD: Normocephalic. EYES: No scleral icterus. No injection or drainage. Pupils 1.5 mm equal reactive. NECK: Supple, trachea midline. No JVD or lymphadenopathy. CARDIOVASCULAR: Regular rate and rhythm without murmurs, gallops, or rubs. RESPIRATORY: Breath sounds equal bilaterally. No accessory muscle use. GASTROINTESTINAL: Abdomen soft, non-tender, nondistended. MUSCULOSKELETAL: Patient has diffuse tenderness over bilateral lower extremity over the thigh area. Mild diffuse tenderness over the hip and the knees. BACK: Nontender without obvious deformity. No CVA tenderness. Course Initial Documented Vital Signs Temperature 97.9 F 06/11/18 14:13 Pulse Rate 35 L 06/11/18 14:13 Respiratory Rate 23 06/11/18 14:13 Pulse Oximetry 98 06/11/18 14:13 Last Documented Vital Signs Temperature 97.8 F 06/11/18 14:57 Pulse Rate 33 L 06/11/18 14:57 Respiratory Rate 25 H 06/11/18 14:57 Blood Pressure 141/110 H 06/11/18 14:57 Pulse Oximetry 100 06/11/18 14:57 Sign Out Sign Out Data: Patient Sign Out occurred on 06/11/18 at 15:40. Patient's care was discussed, and care was transferred from Ignacio Cleaning to Josefina Gillespie. Sign Out Comment: Patient was found in the bathroom wedged between furniture this afternoon. Possible altered mental status. Patient was confused and combative at the scene. Patient is better now. Last updated by Ignacio Cleaning MD at 06/11/18 15:22 Post-Handoff Eval: This patient was signed out to me pending evaluation following an apparent syncopal event which caused her to fall out of the shower. The evaluation for injury is negative for acute injury. We do not yet know the cause of the syncope. She had no prodrome. She is being admitted to observation for further evaluation of syncope. Medical Decision Making MDM Narrative Medical decision making narrative: 67-year-old female with injury status post fall . patient also has altered mental status. Medical Screen Exam Complete: Yes Emergency Medical Condition: Yes Differential Diagnosis Differential Diagnosis: Differential diagnosis including head injury, neck injury, chest injury, extremity injury, electrolyte abnormality, TIA, CVA. Lab Data Result diagrams: 06/11/18 14:30 06/11/18 14:30 Lab Results 06/11/18 06/11/18 06/11/18 Range/Units 14:30 14:30 14:30 WBC 12.4 H (4.0-11.0) th/mm3 RBC 5.31 H (4.00-5.30) mil/mm3 Hgb 14.2 (11.6-15.3) gm/dL Hct 43.0 (35.0-46.0) % MCV 80.9 (80.0-100.0) fL MCH 26.8 L (27.0-34.0) pg MCHC 33.1 (32.0-36.0) % RDW 15.6 (11.6-17.2) % Plt Count 198 (150-450) th/mm3 MPV 11.0 (7.0-11.0) fL Neut % (Auto) 61.3 (16.0-70.0) % Lymph % (Auto) 25.7 (9.0-44.0) % Thurston % (Auto) 10.6 H (0.0-8.0) % Eos % (Auto) 1.5 (0.0-4.0) % Baso % (Auto) 0.9 (0.0-2.0) % Neut # (Auto) 7.6 (1.8-7.7) th/mm3 Lymph # (Auto) 3.2 (1.0-4.8) th/mm3 Thurston # (Auto) 1.3 H (0.0-0.9) th/mm3 Eos # (Auto) 0.2 (0.0-0.4) th/mm3 Baso # (Auto) 0.1 (0.0-0.2) th/mm3 WBC Differential . Differential Comment Auto diff final PT 11.8 H (9.8-11.6) sec INR 1.2 Ratio APTT 25.3 (23.4-31.7) sec Sodium 139 (136-145) meq/L Potassium 3.4 L (3.5-5.1) meq/L Chloride 105 (98-107) meq/L Carbon Dioxide 17.8 L (21.0-32.0) meq/L Anion Gap 16 H (5-15) meq/L BUN 25 H (7-18) mg/dL Creatinine 1.11 H (0.50-1.00) mg/dL Estimated GFR 49 L (>89) mL/min Random Glucose 183 H (74-106) mg/dL Calcium 9.2 (8.5-10.1) mg/dL Total Bilirubin 1.7 H (0.2-1.0) mg/dL AST 28 (15-37) U/L ALT 32 (10-53) U/L Alkaline Phosphatase 106 (45-117) U/L Total Creatine Kinase 78 (26-192) U/L Troponin I 0.02 (0.02-0.05) ng/mL Total Protein 8.3 H (6.4-8.2) g/dL Albumin 4.0 (3.4-5.0) g/dL TSH 4.600 H (0.358-3.740) uIU/mL Imaging Data Radiologist's impression: Chest X-Ray 06/11/18 14:19 CONCLUSION: Negative for acute process Cervical Spine CT 06/11/18 14:24 CONCLUSION: 1. Degenerative changes without fracture or listhesis. Femur X-Ray 06/11/18 14:24 CONCLUSION: Slight osteopenia, extensive osteoarthritis left hip joint . Femur X-Ray 06/11/18 14:24 CONCLUSION: Slight osteopenia, extensive osteoarthritis right hip joint and tricompartment of the knee. Head CT 06/11/18 14:24 CONCLUSION: 1. Negative for acute process . . Pelvis X-Ray 06/11/18 14:24 CONCLUSION: Slight osteopenia, extensive osteoarthritis bilateral hip joints . Discharge Plan Discharge Disposition Patient Disposition: ED Admit(ED Internal Use Only) Discharge Details Diagnosis: Syncope Physicians Team ED Provider: Josefina Gillespie Primary Care Provider: UNKNOWN, Rxs /Orders / Referrals /Forms Prescriptions: No Action Unable to Obtain Home Meds RF: 0 Status ED Status: With Doctor
[2018-06-11 15:09] LABS: Baso # (Auto) 0.1 th/mm3 (0.0-0.2); Baso % (Auto) 0.9 % (0.0-2.0); Eos # (Auto) 0.2 th/mm3 (0.0-0.4); Eos % (Auto) 1.5 % (0.0-4.0); Hemoglobin 14.2 gm/dL (11.6-15.3); Lymph # (Auto) 3.2 th/mm3 (1.0-4.8); Lymph % (Auto) 25.7 % (9.0-44.0); Mean Corpuscular HGB Conc 33.1 % (32.0-36.0); Mean Corpuscular Hemoglobin 26.8 pg (27.0-34.0); Mean Corpuscular Volume 80.9 fL (80.0-100.0); Mono # (Auto) 1.3 th/mm3 (0.0-0.9); Mono % (Auto) 10.6 % (0.0-8.0); Neut # (Auto) 7.6 th/mm3 (1.8-7.7); Neut % (Auto) 61.3 % (16.0-70.0); Platelet Count 198 th/mm3 (150-450); Red Blood Count 5.31 mil/mm3 (4.00-5.30); Red Cell Distribution Width 15.6 % (11.6-17.2); White Blood Count 12.4 th/mm3 (4.0-11.0)
[2018-06-11 15:12] LABS: Activated Partial Thrombo Time 25.3 sec (23.4-31.7); INR 1.2 Ratio; Prothrombin Time 11.8 sec (9.8-11.6)
[2018-06-11 15:35] LABS: Alanine Aminotransferase 32 U/L (10-53); Anion Gap 16 meq/L (5-15); Aspartate Aminotransferase 28 U/L (15-37); Blood Urea Nitrogen 25 mg/dL (7-18); Calcium 9.2 mg/dL (8.5-10.1); Carbon Dioxide 17.8 meq/L (21.0-32.0); Chloride 105 meq/L (98-107); Glomerular Filtration Rate 49 mL/min (>89); Glucose,Random 183 mg/dL (74-106); Potassium 3.4 meq/L (3.5-5.1); Sodium 139 meq/L (136-145)
[2018-06-11 15:45] LABS: Alkaline Phosphatase 106 U/L (45-117); Total Protein 8.3 g/dL (6.4-8.2); Troponin I 0.02 ng/mL (0.02-0.05)
--- NOTE | 2018-06-11 15:46 | XR ---
EXAM DATE: 06/11/2018 3:41 PM EST AGE/SEX: 67 years / Female INDICATIONS: Shortness of breath. CLINICAL DATA: This is the patient's initial encounter. Patient reports that signs and symptoms have been present for 1 day and indicates a pain score of 0/10. MEDICAL/SURGICAL HISTORY: . Hypertension. Syncope. Antritis Cholecystectomy. COMPARISON: [facility] [place] S[place] AP, 06/03/2017. . FINDINGS: A single AP view of the chest demonstrates the lungs to be symmetrically aerated without evidence of mass, infiltrate or effusion. The cardiomediastinal contours are unremarkable. Osseous structures a re intact. CONCLUSION: Negative for acute process Electronically signed by: Ken Dean MD Board Certified Radiologist 06/11/2018 3:44 PM EST
[2018-06-11 15:47] LABS: Creatine Kinase 78 U/L (26-192)
--- NOTE | 2018-06-11 15:49 | CT ---
EXAM DATE: 06/11/2018 3:46 PM EST AGE/SEX: 67 years / Female INDICATIONS: Trauma. Head injury. Fall. CLINICAL DATA: This is the patient's initial encounter. Patient reports that signs and symptoms have been present for 1 day and indicates a pain score of 5/10. MEDICAL/SURGICAL HISTORY: Hypertension. None. RADIATION DOSE: 41.40 CTDI (mGy) COMPARISON: C, CTA BRAIN W 3D RECON, 06/03/2017. . TECHNIQUE: CT of the head without contrast. Using automated exposure control and adjustment of the mA and/or kV according to patient size, radiation dose was kept as low as reasonably achievable to ob tain optimal diagnostic quality images. DICOM format image data is available electronically for revi ew and comparison. FINDINGS: Cerebrum: The ventricles are normal for age. No evidence of midline shift, mass lesion, hemorrhage or acute infarction. No extraaxial fluid collections are seen. Posterior Fossa: The cerebellum and brainstem are intact. The 4th ventricle is midline. The cerebe llopontine angle is unremarkable. Extracranial: The visualized portion of the orbits is intact. Skull: The calvaria is intact. No evidence of skull fracture. Hyperostosis frontalis interna CONCLUSION: 1. Negative for acute process . . Electronically signed by: Ken Dean MD Board Certified Radiologist 06/11/2018 3:47 PM EST
--- NOTE | 2018-06-11 15:58 | XR ---
EXAM DATE: 06/11/2018 3:44 PM EST AGE/SEX: 67 years / Female INDICATIONS: Left femur pain, fall in the shower. CLINICAL DATA: This is the patient's initial encounter. Patient reports that signs and symptoms have been present for 1 day and indicates a pain score of 10/10. MEDICAL/SURGICAL HISTORY: None. None. COMPARISON: No prior exams available for comparison. FINDINGS: No definite fractures, or dislocations are identified. No definite lytic or sclerotic lesi on is seen. Slight osteopenia is seen. Extensive and far advanced osteoarthritis left hip joint almo st complete loss of the articular cartilage with hypertrophic changes. CONCLUSION: Slight osteopenia, extensive osteoarthritis left hip joint . Electronically signed by: Patrica Arias MD Board Certified Radiologist 06/11/2018 3:57 PM EST
--- NOTE | 2018-06-11 15:59 | XR ---
EXAM DATE: 06/11/2018 3:45 PM EST AGE/SEX: 67 years / Female INDICATIONS: Right leg pain, fall in the shower. CLINICAL DATA: This is the patient's initial encounter. Patient reports that signs and symptoms have been present for 1 day and indicates a pain score of 10/10. MEDICAL/SURGICAL HISTORY: Arthritis. None. COMPARISON: No prior exams available for comparison. FINDINGS: No definite fractures, or dislocations are identified. No definite lytic or sclerotic lesi on is seen. Slight osteopenia is seen. Extensive and far advanced osteoarthritis right hip joint wit h complete loss of the articular cartilage, flattening of the femoral head and significant hypertroph ic changes. Extensive osteoarthritis within the right knee tricompartment not adequately characterize d. CONCLUSION: Slight osteopenia, extensive osteoarthritis right hip joint and tricompartment of the kn ee. Electronically signed by: Patrica Arias MD Board Certified Radiologist 06/11/2018 3:58 PM EST
--- NOTE | 2018-06-11 16:02 | XR ---
EXAM DATE: 06/11/2018 3:50 PM EST AGE/SEX: 67 years / Female INDICATIONS: Pelvic pain, fall in shower. CLINICAL DATA: This is the patient's initial encounter. Patient reports that signs and symptoms have been present for 1 day and indicates a pain score of 9/10. MEDICAL/SURGICAL HISTORY: Arthritis. None. COMPARISON: No prior exams available for comparison. FINDINGS: No definite fractures, or dislocations are identified. No definite lytic or sclerotic lesi on is seen. Slight osteopenia is seen. Extensive and far advanced osteoarthritis bilateral hip joint s worse on the right with deformity of right femoral head. CONCLUSION: Slight osteopenia, extensive osteoarthritis bilateral hip joints . Electronically signed by: Patrica Arias MD Board Certified Radiologist 06/11/2018 4:01 PM EST
[2018-06-11] MEDS ORDERED: Morphine Inj 4 MG/ML Vial IV.PUSH ONE (16:06)
--- NOTE | 2018-06-11 16:10 | CT ---
EXAM DATE: 06/11/2018 3:52 PM EST AGE/SEX: 67 years / Female INDICATIONS: Trauma. Fall. CLINICAL DATA: This is the patient's initial encounter. Patient reports that signs and symptoms have been present for 1 day and indicates a pain score of 10/10. MEDICAL/SURGICAL HISTORY: Hypertension. None. RADIATION DOSE: 20.57 CTDI (mGy) COMPARISON: No prior exams available for comparison. TECHNIQUE: Contiguous axial images were obtained using helical multirow detector technique. The vol umetric data was post-processed with multiplanar reconstruction in oblique axial, sagittal, and coron al planes. Using automated exposure control and adjustment of the mA and/or kV according to patient s ize, radiation dose was kept as low as reasonably achievable to obtain optimal diagnostic quality sohail ges. DICOM format image data is available electronically for review and comparison. FINDINGS: No prevertebral soft tissue swelling or compression deformity. Alignment is normal. The odontoid proc ess is intact. Cervicothoracic junction is approximated. Multilevel osteophytosis greatest at C5-C7. Moderate multilevel facet hypertrophic changes are seen. There is moderate left foraminal narrowing C 2-3 secondary to facet and mild uncovertebral hypertrophy. Mild bilateral foraminal narrowing at C3-4 secondary to facet and uncovertebral hypertrophy. Mild left foraminal narrowing at C4-5 secondary to facet and uncovertebral hypertrophy. Severe facet arthropathy at C5-6 on the left with mild foramina l narrowing, mild foraminal narrowing at C6-7 secondary to moderate facet arthropathy. There is mild to moderate canal narrowing suspected at C6-7. CONCLUSION: 1. Degenerative changes without fracture or listhesis. Electronically signed by: Leo Peace MD Board Certified Radiologist 06/11/2018 4:09 PM EST
--- NOTE | 2018-06-11 17:50 | P.HPIM ---
History of Present Illness Service: [facility] Primary Care Physician: UNKNOWN Chief Complaint: "I passed out" History of Present Illness: 67-year-old with past medical history significant for hypertension, hyperlipidemia, arthritis who presents to the emergency department via [facility] after syncopal episode. Patient is seen and examined in the emergency department with family member present. Apparently patient reports that she was getting into the shower when she passed out. She denies any dizziness, lightheadedness, chest pain, shortness of breath just prior to syncopal episode. Does not remember how episode occurred but family who was present reports patient was thought to be in cardiac arrest and mouth-to -mouth respirations were provided. Shortly after episode patient was also fairly confused and [facility] was called and patient was transported to [facility]. No reports of fecal, urinary incontinence or tongue biting during syncopal episode. Patient reports that she had syncopal episode about 1 year ago where nothing acute was found, she was treated for hypertension and hyperlipidemia at that time. She reports that normally her blood pressure at home runs systolic [id number]. She states she normally takes her blood pressure medication however skips meds on the days that she goes to the gym like today. She does note that her heart rate was 32 yesterday. She reports being on a keto diet for the past 4 weeks for weight loss. She denies any recent illness, nausea, vomiting or diarrhea. At the moment patient reports dizziness has improved, denies any chest pain, lightheadedness, vision changes. She states that she is feeling better although is concerned regarding her heart rate. She also complains of hip soreness and knee pain although endorses a history of arthritis and is aware that she needs knee replacements. She also complains of some jaw pain but no limited range of motion. Review of Systems Review of Systems: all other systems reviewed are negative [facility] Medical History Medical History HBP (high blood pressure) (Acute) HLD (hyperlipidemia) (Acute) Osteoarthritis (Acute) Surgical history unknown (Acute) Family History Family History Mother Myocardial infarct Social History Social History Substance History: No History of Abuse Second Hand Smoke Exposure: Yes Smoking Status: Current every day smoker Tobacco Type: Cigarettes How Often Do You Have a Drink Containing Alcohol: Never Recent Travel in [facility] within the Last 8 Weeks: No Recent Out of Country Travel within the Last 8 Weeks: No Immunization History Tetanus Immunization: >5 Years Medications and Allergies Allergies Allergy/AdvReac Type Severity Reaction Status Date / Time No Known Allergies Allergy Unverified 06/03/17 12:20 Home Medications Medication Instructions Recorded Confirmed Type amlodipine 10 mg PO DAILY 06/11/18 06/11/18 History atorvastatin 10 mg PO QPM 06/11/18 06/11/18 History carvedilol 12.5 mg PO BID 06/11/18 06/11/18 History hydrochlorothiazide 25 mg PO DAILY 06/11/18 06/11/18 History Physical Exam Vital signs: Vital Signs 06/11/18 14:13 06/11/18 14:22 06/11/18 14:57 Temperature 97.9 F 97.8 F Pulse Rate 35 L 34 L 33 L Respiratory Rate 23 25 H Blood Pressure 141/110 H Pulse Oximetry 98 100 100 06/11/18 17:34 Temperature 98.2 F Pulse Rate 36 L Respiratory Rate 15 Blood Pressure 178/74 H Pulse Oximetry 100 Intake & Output 06/10/18 06/11/18 06/11/18 18:59 06:59 18:59 Weight 123.377 kg Narrative: GENERAL: Well-developed, obese female in no acute distress. SKIN: Warm and dry. HEAD: Atraumatic. Normocephalic. EYES: Pupils equal and round. No scleral icterus. No injection or drainage. ENT: No nasal bleeding or discharge. Mucous membranes pink and moist. NECK: Trachea midline. No JVD. No carotid bruits noted. CARDIOVASCULAR: Bradycardic, no murmurs or clicks. RESPIRATORY: No accessory muscle use. Clear to auscultation. Breath sounds equal bilaterally. GASTROINTESTINAL: Abdomen soft/obese. + Bowel sounds MUSCULOSKELETAL: Extremities without clubbing, cyanosis, or edema. No obvious deformities. NEUROLOGICAL: Awake, alert, oriented x3. No obvious cranial nerve deficits. Motor grossly within normal limits. Five out of 5 muscle strength in the arms and legs. Normal speech. PSYCHIATRIC: Appropriate mood and affect; insight and judgment normal. Results Labs CBC & Chem 7: 06/11/18 14:30 06/11/18 14:30 Imaging Impressions Chest X-Ray 06/11/18 14:19 CONCLUSION: Negative for acute process Cervical Spine CT 06/11/18 14:24 CONCLUSION: 1. Degenerative changes without fracture or listhesis. Femur X-Ray 06/11/18 14:24 CONCLUSION: Slight osteopenia, extensive osteoarthritis left hip joint . Femur X-Ray 06/11/18 14:24 CONCLUSION: Slight osteopenia, extensive osteoarthritis right hip joint and tricompartment of the knee. Head CT 06/11/18 14:24 CONCLUSION: 1. Negative for acute process . . Pelvis X-Ray 06/11/18 14:24 CONCLUSION: Slight osteopenia, extensive osteoarthritis bilateral hip joints . Caprini VTE Risk Assessment Caprini VTE Risk Assessment: Moderate/High Risk (score >= 2) Caprini Risk Assessment Model: Point Value = 1 Point Value = 2 Point Value = 3 Point Value = 5 Age 41-60 Minor surgery BMI > 25 kg/m2 Swollen legs Varicose veins or History of unexplained or recurrent spontaneous Oral contraceptives or hormone replacement Sepsis (< 1 month) Serious lung disease, including pneumonia (< 1 month) Abnormal pulmonary function Acute myocardial infarction Congestive heart failure (< 1 month) History of inflammatory bowel disease Medical patient at bed rest Age 61-74 Arthroscopic surgery Major open surgery (> 45 min) Laparoscopic surgery (> 45 min) Malignancy Confined to bed (> 72 hours) Immobilizing plaster cast Central venous access Age >= 75 History of VTE Family history of VTE Factor V Leiden Prothrombin [id number] Lupus anticoagulant Anticardiolipin antibodies Elevated serum homocysteine Heparin-induced thrombocytopenia Other congenital or acquired thrombophilia Stroke (< 1 month) Elective arthroplasty Hip, pelvis, or leg fracture Acute spinal cord injury (< 1 month) Prophylaxis Regimen: Total Risk Factor Score Risk Level Prophylaxis Regimen 0-1 Low Early ambulation 2 Moderate Order ONE of the following: *Sequential Compression Device (SCD) *Heparin 5000 units SQ BID 3-4 Higher Order ONE of the following medications: *Heparin 5000 units SQ TID *Enoxaparin/Lovenox 40 mg SQ daily (WT < 150 kg, CrCl > 30 mL/min) *Enoxaparin/Lovenox 30 mg SQ daily (WT < 150 kg, CrCl > 10-29 mL/min) *Enoxaparin/Lovenox 30 mg SQ BID (WT < 150 kg, CrCl > 30 mL/min) AND/OR *Sequential Compression Device (SCD) 5 or more Highest Order ONE of the following medications: *Heparin 5000 units SQ TID (Preferred with Epidurals) *Enoxaparin/Lovenox 40 mg SQ daily (WT < 150 kg, CrCl > 30 mL/min) *Enoxaparin/Lovenox 30 mg SQ daily (WT < 150 kg, CrCl > 10-29 mL/min) *Enoxaparin/Lovenox 30 mg SQ BID (WT < 150 kg, CrCl > 30 mL/min) AND *Sequential Compression Device (SCD) Assessment and Plan Plan 67-year-old with past medical history significant for hypertension, hyperlipidemia, arthritis who presents to the emergency department via [facility] after syncopal episode. Syncopal episode with fall Symptomatic bradycardia-HR 30's -Head CT, chest x-ray negative. Cervical CT with degenerative changes, bilateral femur x-rays with osteopenia, osteoarthritis, tricompartment noted of the right knee. Pelvis x-ray with osteopenia and once again noted arthritis of hips. -Initial EKG with sinus bradycardia -Obtain additional EKG, monitor on telemetry, consult cardiology for further recommendations, appreciate assistance. -NPO in case patient is deaf procedure, IV fluids for hydration as well as mild dehydration noted on CMP. -Hold carvedilol and amlodipine Hypertension, chronic BP on admission 141/110 -At the time my exam BP improved to 178/74 -Continue atorvastatin and hydrochlorothiazide Hypokalemia, mild -Replace with KCl p.o., recheck labs in the a.m. Mild leukocytosis, likely reactive to stress, recheck CBC in a.m. Hyperlipidemia -Resume statin once verified DVT prophylaxisSCD's/early ambulation Discussed Condition With: Patient, family member, Attending Attestation patient was seen and examined. presented to ER after she passed out at home earlier. on exam; she was found to be bradycardic. will monitor on telemetry- will verify the home meds ( she says that she's been on different types of BP meds at home). consult cardiology. rest of assessment and plan as noted above by Ms.Marizsa Chen. I attest the I personally performed the history and physical exam and reviewed the assessment and plan with the patient and her family.
[2018-06-11] MEDS: Sod Chloride 0.9% Inj 1,000 ML IV.CONT SCH (18:06)
[2018-06-11] MEDS ORDERED: Acetaminophen 325 MG Tablet PO PRN (18:11)
--- NOTE | 2018-06-11 22:27 | ECG ---
Date Performed: 06/11/2018 Time Performed: 18:25:58 PTAGE: 67 years EKG: Sinus rhythm WITH COMPLETE AV BLOCK SLOW JUNCTIONAL ESCAPE RIGHT BUNDLE BRANCH BLOCK LEFT POSTERIOR FASCICULAR BL OCK ABNORMAL ECG PREVIOUS TRACING : 06/11/2018 14.25 Since the previous tracing, no significant change noted DOCTOR: Marco Antonio Garcia Interpretating Date/Time 06/11/2018 22:26:21
[2018-06-12] MEDS: Sod Chloride 0.9% Inj 1,000 ML IV.CONT SCH (07:07)
[2018-06-12] MEDS: hydroCHLOROthiazide 25 MG Tablet PO SCH (08:17)
[2018-06-12 08:31] LABS: Baso # (Auto) 0.1 th/mm3 (0.0-0.2); Baso % (Auto) 0.4 % (0.0-2.0); Eos % (Auto) 0.4 % (0.0-4.0); Hematocrit 40.4 % (35.0-46.0); Hemoglobin 13.4 gm/dL (11.6-15.3); Lymph % (Auto) 17.3 % (9.0-44.0); Mean Corpuscular HGB Conc 33.1 % (32.0-36.0); Mean Corpuscular Hemoglobin 26.8 pg (27.0-34.0); Mean Corpuscular Volume 80.9 fL (80.0-100.0); Mean Platelet Volume 10.9 fL (7.0-11.0); Mono # (Auto) 1.3 th/mm3 (0.0-0.9); Mono % (Auto) 11.1 % (0.0-8.0); Neut # (Auto) 8.3 th/mm3 (1.8-7.7); Neut % (Auto) 70.8 % (16.0-70.0); Platelet Count 168 th/mm3 (150-450); Red Blood Count 4.99 mil/mm3 (4.00-5.30); Red Cell Distribution Width 15.9 % (11.6-17.2); White Blood Count 11.7 th/mm3 (4.0-11.0)
[2018-06-12 09:08] LABS: Carbon Dioxide 21.3 meq/L (21.0-32.0)
--- NOTE | 2018-06-12 14:41 | MB ---
cc: Marco Antonio Garcia MD DATE: 06/12/2018 HISTORY OF PRESENT ILLNESS: This patient is a 67-year-old white female with a history of hypertension, dyslipidemia, and arthritis. She was getting in the shower yesterday and suddenly passed out. She had no chest pain, dizziness, shortness of breath, lightheadedness. The patient was subsequently confused. She had an episode of syncope 1 year ago, but no cause was found at that time. She was found to be in high-degree and also third-degree AV block with junctional escape in the 30s and high 20s. She has not had any recurrent symptoms. PAST MEDICAL HISTORY: Hypertension, dyslipidemia, obesity, osteoarthritis. MEDICATIONS: 1. Amlodipine. 2. Atorvastatin. 3. Carvedilol 12.5 mg twice a day, last taken last dose taken evening 4. Hydrochlorothiazide. ALLERGIES: NONE. SOCIAL HISTORY: The patient is a smoker. She does not drink alcohol. She is , accompanied by her . FAMILY HISTORY: Positive for heart disease in her mother. REVIEW OF SYSTEMS: Otherwise negative. PHYSICAL EXAMINATION: VITAL SIGNS: Blood pressure is 150/59, pulse 33 and regular. HEENT: Negative. NECK: 2+ carotids, no bruits. LUNGS: Breath sounds clear. HEART: Regular with no murmur or gallop or rub. ABDOMEN: Soft, nontender. No masses. EXTREMITIES: Trace edema. 2+ pulses. NEUROLOGIC: Grossly nonfocal. DIAGNOSTIC DATA: EKG was reviewed and showed normal sinus rhythm, complete heart block, slow junctional escape, right bundle branch block and left posterior fascicular block. LABORATORY DATA: Hemoglobin 13.4, potassium 3.4 and 3, creatinine 1.1 and 0.8. AST and ALT normal. Troponin 0.02. TSH 4.6. DIAGNOSES: 1. Third-degree AV block with severe symptomatic bradycardia. 2. Hypertension. 3. Dyslipidemia. 4. Obesity. DISPOSITION: This patient will be monitored on telemetry off her beta lien. We will obtain echocardiogram to evaluate her left ventricle function. We will continue therapy for hypertension. If there is no improvement of her AV block, we will proceed with dual-chamber pacemaker placement. MD SHAWNA Thrasher/jose roberto , 01:54 PM , 02:03 PM MICHELLE
--- NOTE | 2018-06-12 16:07 | P.PNIM ---
Subjective Interval history: The patient is in bed she appears in not acute distress. Heart rate is noted low. Discussed with cardiology plan for 2D echo today and pacemaker possible on Thursday. The patient denies any chest pain or shortness of breath. No lightheadedness. However she is in bed. No nausea or vomiting. No diaphoresis. Physical Exam Vital signs: Vital Signs 06/11/18 17:34 06/11/18 17:48 06/11/18 17:49 Temperature 98.2 F 98.2 F Pulse Rate 36 L 35 L 35 L Respiratory Rate 15 14 Blood Pressure 178/74 H 178/74 H Pulse Oximetry 100 100 06/11/18 18:52 06/11/18 19:23 06/11/18 20:00 Temperature 97.9 F Pulse Rate 33 L 31 L 31 L Respiratory Rate 26 H 20 Blood Pressure 204/93 H 190/79 H Pulse Oximetry 99 99 06/11/18 20:33 06/11/18 21:00 06/11/18 21:08 Temperature Pulse Rate 34 L 32 L 42 L Respiratory Rate 16 20 16 Blood Pressure 172/74 H 161/69 H 161/69 H Pulse Oximetry 98 99 98 06/11/18 23:00 06/12/18 00:00 06/12/18 01:01 Temperature 98.6 F Pulse Rate 36 L 40 L 34 L Respiratory Rate 18 18 Blood Pressure 155/72 H 159/84 H Pulse Oximetry 97 96 06/12/18 02:01 06/12/18 03:01 06/12/18 03:59 Temperature 98.2 F Pulse Rate 31 L 33 L 30 L Respiratory Rate 18 Blood Pressure 157/85 H Pulse Oximetry 97 06/12/18 04:00 06/12/18 05:00 06/12/18 06:00 Temperature Pulse Rate 30 L 33 L 32 L Respiratory Rate Blood Pressure Pulse Oximetry 06/12/18 07:00 06/12/18 08:00 06/12/18 09:00 Temperature 98.5 F Pulse Rate 29 L 36 L 29 L Respiratory Rate 16 Blood Pressure 128/78 Pulse Oximetry 98 06/12/18 09:32 06/12/18 10:24 06/12/18 12:00 Temperature 98.1 F Pulse Rate 34 L 33 L 33 L Respiratory Rate 16 Blood Pressure 155/69 H Pulse Oximetry 98 06/12/18 13:00 06/12/18 13:23 06/12/18 15:00 Temperature Pulse Rate 34 L 33 L 58 L Respiratory Rate Blood Pressure Pulse Oximetry 06/12/18 15:27 06/12/18 15:33 Temperature 98.3 F Pulse Rate 58 L 35 L Respiratory Rate 16 Blood Pressure 153/66 H Pulse Oximetry 98 Intake & Output 06/11/18 06/12/18 06/12/18 18:59 06:59 18:59 Intake Total 1000 / 1000 Output Total 600 / 600 Balance -600 / -600 1000 / 1000 Weight 123.377 kg 130.4 kg Intake: IV 1000 / 1000 NS Inj 1,000 ML @ 70 mls/hr IV. 1000 / 1000 CONT .[id number] FABIO Rx#:[id number] Output: Urine 600 / 600 Other: # Bowel Movements 0 Narrative: GENERAL: Pleasant 67-year-old female, well-nourished well-developed appears to not acute distress. NECK: Trachea midline. No JVD. No carotid bruits noted. CARDIOVASCULAR: Bradycardic, no murmurs or clicks. RESPIRATORY: No accessory muscle use. Clear to auscultation. Breath sounds equal bilaterally. GASTROINTESTINAL: Abdomen soft/obese. + Bowel sounds MUSCULOSKELETAL: Extremities without clubbing, cyanosis, or edema. No obvious deformities. NEUROLOGICAL: Awake, alert, oriented x3. No obvious cranial nerve deficits. Motor grossly within normal limits. Five out of 5 muscle strength in the arms and legs. Normal speech. PSYCHIATRIC: Appropriate mood and affect; insight and judgment normal. Results Labs CBC & Chem 7: 06/12/18 06:54 06/12/18 06:54 Imaging Imaging: Impressions Cervical Spine CT 06/11/18 14:24 CONCLUSION: 1. Degenerative changes without fracture or listhesis. Assessment and Plan Plan 67-year-old with past medical history significant for hypertension, hyperlipidemia, arthritis who presents to the emergency department via [facility] after syncopal episode. Syncopal episode with fall Symptomatic bradycardia-HR 30's -Head CT, chest x-ray negative. Cervical CT with degenerative changes, bilateral femur x-rays with osteopenia, osteoarthritis, tricompartment noted of the right knee. Pelvis x-ray with osteopenia and once again noted arthritis of hips. -Initial EKG with sinus bradycardia -Obtain additional EKG, monitor on telemetry, consult cardiology for further recommendations, appreciate assistance. -Hold carvedilol and amlodipine - Plan fro 2D ECHO - POss PM on Wednesday 06/[address] Jose tolentino Hypertension, chronic BP on admission 141/110 -At the time my exam BP improved to 178/74 -Continue atorvastatin and hydrochlorothiazide Hypokalemia, mild -Replace with KCl p.o., recheck labs in the a.m. Mild leukocytosis, likely reactive to stress, recheck CBC in a.m. Hyperlipidemia -Resume statin once verified DVT prophylaxisSCD's/early ambulation Discussed Condition With: Patient, nurse, Dr Jose tolentino Progress Note: Quality VTE Deep Vein Thrombosis/Pulmonary Embolism Present on Admission: No
--- NOTE | 2018-06-12 21:18 | ECG ---
Date Performed: 06/11/2018 Time Performed: 14:25:43 PTAGE: 67 years EKG: Sinus rhythm HIGH DEGREE AV BLOCK RIGHT BUNDLE BRANCH BLOCK LEFT ANTERIOR FASCICULAR BLOCK ABNORMAL ECG PREVIOUS TRACING : 06/11/2018 14.24 Compared to previous tracing, AV block now present DOCTOR: Marco Antonio Garcia Interpretating Date/Time 06/12/2018 21:16:57
[2018-06-13] MEDS: Sod Chloride 0.9% Inj 1,000 ML IV.CONT SCH ×2 (00:18→11:54)
[2018-06-13] MEDS: hydroCHLOROthiazide 25 MG Tablet PO SCH (09:17)
--- NOTE | 2018-06-13 10:16 | ECHRPT ---
Indication: Atrial Fib and Flutter CONCLUSIONS Mildly dilated left ventricle. Wall thickness is measured at the upper limits of normal. The left ventricular systolic function is normal with an estimated ejection fraction in the range of 55-60%. The left atrial size is mildly dilated. Mild mitral valve regurgitation. There is mild tricuspid valve regurgitation. The estimated pulmonary arterial pressure is 46 mmHg. There is a small pericardial effusion present. BP: / HR: Rhythm: MEASUREMENTS (Male / Female) Normal Values Technical Quality:Technically difficult study 2D ECHO LV Diastolic Diameter PLAX 5.6 cm 4.2 - 5.9 / 3.9 - 5.3 cm LV Systolic Diameter PLAX 3.3 cm IVS Diastolic Thickness 1.0 cm 0.6 - 1.0 / 0.6 - 0.9 cm LVPW Diastolic Thickness 1.0 cm 0.6 - 1.0 / 0.6 - 0.9 cm LV Relative Wall Thickness 0.4 RV Internal Dim ED PLAX 3.1 cm LVOT Diameter 2.0 cm Aortic Root Diameter 2.8 cm LA Systolic Diameter LX 4.1 cm 3.0 - 4.0 / 2.7 - 3.8 cm M-MODE AV Cusp Separation MM 1.8 cm DOPPLER AV Peak Velocity 216.0 cm/s AV Peak Gradient 18.7 mmHg AV Mean Gradient 9.0 mmHg AV Velocity Time Integral 51.7 cm LVOT Peak Velocity 151.0 cm/s LVOT Peak Gradient 9.1 mmHg LVOT Velocity Time Integral 42.3 cm AV Area Cont Eq vti 2.6 cm AV Area Cont Eq pk 2.2 cm Mitral E Point Velocity 105.0 cm/s Mitral A Point Velocity 63.7 cm/s Mitral E to A Ratio 1.6 LV E' Lateral Velocity 18.5 cm/s Mitral E to LV E' Lateral Ratio 5.7 LV E' Septal Velocity 8.0 cm/s Mitral E to LV E' Septal Ratio 13.1 TR Peak Velocity 301.0 cm/s TR Peak Gradient 36.2 mmHg Right Atrial Pressure 10.0 mmHg Pulmonary Artery Systolic Pressu 46.2 mmHg Right Ventricular Systolic Press 46.2 mmHg PV Peak Velocity 113.0 cm/s PV Peak Gradient 5.1 mmHg FINDINGS LEFT VENTRICLE Mildly dilated left ventricle. Wall thickness is measured at the upper limits of normal. The left ventricular systolic function is normal with an estimated ejection fraction in the range of 55-60%. RIGHT VENTRICLE Normal right ventricular size and systolic function. LEFT ATRIUM The left atrial size is mildly dilated. RIGHT ATRIUM The right atrial size is normal. ATRIAL SEPTUM Normal atrial septal thickness without atrial level shunting by limited color doppler interrogation. AORTA The aortic root and proximal ascending aorta are normal in size on limited imaging. MITRAL VALVE Mild mitral valve regurgitation. AORTIC VALVE Trileaflet aortic valve. No aortic valve stenosis or regurgitation. TRICUSPID VALVE There is mild tricuspid valve regurgitation. The estimated pulmonary arterial pressure is 46 mmHg. PULMONARY VALVE No pulmonary valve regurgitation or stenosis. VESSELS The inferior vena cava is normal in size. PERICARDIUM There is a small pericardial effusion present. Gumaro Baker MD (Electronically Signed) Final Date:13 June 2018 10:15
--- NOTE | 2018-06-13 11:30 | P.PNCA ---
Subjective Interval history: Patient denies any CP, pressure, palpitations or SOB. She does complain of dizziness. Medications and Allergies Allergies Allergy/AdvReac Type Severity Reaction Status Date / Time No Known Allergies Allergy Unverified 06/03/17 12:20 Home Medications Medication Instructions Recorded Confirmed Type amlodipine 10 mg PO DAILY 06/11/18 06/11/18 History atorvastatin 10 mg PO QPM 06/11/18 06/11/18 History carvedilol 12.5 mg PO BID 06/11/18 06/11/18 History hydrochlorothiazide 25 mg PO DAILY 06/11/18 06/11/18 History Active Medications: Active Medications Acetaminophen (Tylenol) 650 mg PO Q4H PRN PRN Reason: PAIN 1-10 OR TEMP > 101 F Atorvastatin Calcium (Lipitor) 10 mg PO QPM [facility] Last Admin: 06/12/18 17:22 Dose: 10 mg Enalaprilat (Vasotec Inj) 1.25 mg IV.PUSH Q6H PRN PRN Reason: SBP>160, DBP>90 Last Admin: 06/11/18 20:14 Dose: 1.25 mg Hydrochlorothiazide (Hydrodiuril) 25 mg PO DAILY [facility] Last Admin: 06/13/18 09:17 Dose: 25 mg Sodium Chloride (Ns Inj) 1,000 mls @ 70 mls/hr IV.CONT .[id number] [facility] Last Infusion: 06/13/18 07:28 Dose: Infused Physical Exam Vital signs: Vital Signs 06/12/18 12:00 06/12/18 13:00 06/12/18 13:23 Temperature 98.1 F Pulse Rate 33 L 34 L 33 L Respiratory Rate 16 Blood Pressure 155/69 H Pulse Oximetry 98 06/12/18 15:00 06/12/18 15:27 06/12/18 15:33 Temperature 98.3 F Pulse Rate 58 L 58 L 35 L Respiratory Rate 16 Blood Pressure 153/66 H Pulse Oximetry 98 06/12/18 17:00 06/12/18 17:34 06/12/18 19:00 Temperature Pulse Rate 42 L 38 L 38 L Respiratory Rate Blood Pressure Pulse Oximetry 06/12/18 20:00 06/12/18 21:00 06/12/18 22:00 Temperature 98.6 F Pulse Rate 40 L 38 L 34 L Respiratory Rate 20 Blood Pressure 158/89 H Pulse Oximetry 97 06/12/18 23:00 06/13/18 00:00 06/13/18 01:00 Temperature 97.8 F Pulse Rate 38 L 30 L 31 L Respiratory Rate 20 Blood Pressure 155/87 H Pulse Oximetry 97 06/13/18 02:00 06/13/18 03:00 06/13/18 03:56 Temperature Pulse Rate 32 L 34 L 40 L Respiratory Rate Blood Pressure Pulse Oximetry 06/13/18 03:57 06/13/18 05:00 06/13/18 05:54 Temperature 98.2 F Pulse Rate 40 L 32 L 34 L Respiratory Rate 20 Blood Pressure 151/79 H Pulse Oximetry 96 06/13/18 07:00 06/13/18 08:00 06/13/18 09:00 Temperature 97.9 F Pulse Rate 35 L 33 L 32 L Respiratory Rate 18 Blood Pressure 171/68 H Pulse Oximetry 97 06/13/18 10:00 06/13/18 11:00 Temperature Pulse Rate 32 L 32 L Respiratory Rate Blood Pressure Pulse Oximetry Intake & Output 06/12/18 06/13/18 06/13/18 18:59 06:59 18:59 Intake Total 1720 / 1720 480 / 480 1000 / 1000 Output Total 650 / 650 1100 / 1100 Balance 1070 / 1070 -620 / -620 1000 / 1000 Weight 130.3 kg Intake: IV 1000 / 1000 1000 / 1000 NS Inj 1,000 ML @ 70 mls/hr IV. 1000 / 1000 1000 / 1000 CONT .[id number] [facility] Rx#:[id number] Oral 720 / 720 480 / 480 Output: Urine 650 / 650 1100 / 1100 Other: # Bowel Movements 0 - Constitutional no acute distress - Routine HEENT Exam Head: Present: normocephalic Eye: Present: PERRL ENT: Present: mucous membranes moist - Routine Neck Exam Present: full ROM - Routine Respiratory Exam Present: CTA bilaterally - Routine Cardiovascular Exam Present: S1, S2, bradycardia - Routine Abdominal Exam Present: normoactive bowel sounds - Routine Extremities Exam Present: full ROM, pulses intact, normal capillary refill. Absent: cyanosis, clubbing, edema - Routine Skin Exam Present: intact - Routine Neurological Exam Present: oriented X3 - Detailed Neurological Exam: Coma Scale Eye Opening: Spontaneous Verbal Response: Oriented Motor Response: Obey commands Kimi Coma Scale Total: 15 - Routine Psychiatric Exam Present: normal affect Results 06/12/18 06:54 06/12/18 06:54 Cardiac Enzymes 06/11/18 Range/Units 14:30 AST 28 (15-37) U/L Troponin I 0.02 (0.02-0.05) ng/mL Coagulation 06/11/18 Range/Units 14:30 PT 11.8 H (9.8-11.6) sec APTT 25.3 (23.4-31.7) sec CBC 06/11/18 06/12/18 Range/Units 14:30 06:54 WBC 12.4 H 11.7 H (4.0-11.0) th/mm3 RBC 5.31 H 4.99 (4.00-5.30) mil/mm3 Hgb 14.2 13.4 (11.6-15.3) gm/dL Hct 43.0 40.4 (35.0-46.0) % Plt Count 198 168 (150-450) th/mm3 Neut # (Auto) 7.6 8.3 H (1.8-7.7) th/mm3 Lymph # (Auto) 3.2 2.0 (1.0-4.8) th/mm3 [place] # (Auto) 1.3 H 1.3 H (0.0-0.9) th/mm3 Eos # (Auto) 0.2 0.0 (0.0-0.4) th/mm3 Baso # (Auto) 0.1 0.1 (0.0-0.2) th/mm3 Comprehensive Metabolic Panel 06/11/18 06/12/18 Range/Units 14:30 06:54 Sodium 139 143 (136-145) meq/L Potassium 3.4 L 3.0 L (3.5-5.1) meq/L Chloride 105 109 H (98-107) meq/L Carbon Dioxide 17.8 L 21.3 (21.0-32.0) meq/L BUN 25 H 26 H (7-18) mg/dL Creatinine 1.11 H 0.77 (0.50-1.00) mg/dL Calcium 9.2 9.0 (8.5-10.1) mg/dL AST 28 (15-37) U/L ALT 32 (10-53) U/L Alkaline Phosphatase 106 (45-117) U/L Total Protein 8.3 H (6.4-8.2) g/dL Albumin 4.0 (3.4-5.0) g/dL Intake and Output 06/12/18 06/13/18 06/13/18 22:59 06:59 14:59 Intake Total 720 / 720 480 / 480 1000 / 1000 Output Total 650 / 650 1100 / 1100 Balance 70 / 70 -620 / -620 1000 / 1000 Intake: IV 1000 / 1000 NS Inj 1,000 ML @ 70 mls/hr IV. 1000 / 1000 CONT .[id number] [facility] Rx#:[id number] Oral 720 / 720 480 / 480 Output: Urine 650 / 650 1100 / 1100 Other: # Bowel Movements 0 Weight 130.3 kg - Imaging and Cardiology Imaging: Impressions Chest X-Ray 06/11/18 14:19 CONCLUSION: Negative for acute process Cervical Spine CT 06/11/18 14:24 CONCLUSION: 1. Degenerative changes without fracture or listhesis. Femur X-Ray 06/11/18 14:24 CONCLUSION: Slight osteopenia, extensive osteoarthritis left hip joint . Femur X-Ray 06/11/18 14:24 CONCLUSION: Slight osteopenia, extensive osteoarthritis right hip joint and tricompartment of the knee. Head CT 06/11/18 14:24 CONCLUSION: 1. Negative for acute process . . Pelvis X-Ray 06/11/18 14:24 CONCLUSION: Slight osteopenia, extensive osteoarthritis bilateral hip joints . Assessment and Plan - Assessment (1) Third degree heart block Code(s): I44.2 - Atrioventricular block, complete Status: Acute (2) Syncope Code(s): R55 - Syncope and collapse Status: Acute (3) Hypertension Code(s): I10 - Essential (primary) hypertension Status: Acute (4) Hyperlipidemia Code(s): E78.5 - Hyperlipidemia, unspecified Status: Acute (5) Obesity Code(s): E66.9 - Obesity, unspecified Status: Acute - Plan She remains in 3rd degree heart block. Echo on 06/12/18 showed an EF 55-60%, mild MR, mild TR and small pericardial effusion. We will proceed with dual chamber pacemaker placement tomorrow. NPO after midnight except for medications. Have consent signed and placed on chart. Risk factor associated with pacemaker placement discussed with patient and family. They verbalized understanding and wish to proceed. Continue to monitor the patient on telemetry. We will continue to monitor the patient during her hospitalization. The patient was seen and evaluated by Dr. Garcia who participated in care, management and decision making. - Attending Attestation Patient seen and examined. I reviewed and agree with the evaluation and plan as presented. She stays in [facility]. LV fx preserved. Will proceed with DDD pacemaker placement tomorrow. (2) Syncope Qualifiers: Syncope type: unspecified Qualified Code(s): R55 - Syncope and collapse
--- NOTE | 2018-06-13 17:31 | P.PNIM ---
Subjective Interval history: The patient was seen earlier in the morning today. Says she felt lightheaded earlier in the morning, heart rate into the lower side. No shortness of breath. Feels tired. No nausea or vomiting. Physical Exam Vital signs: Vital Signs 06/12/18 17:34 06/12/18 19:00 06/12/18 20:00 Temperature 98.6 F Pulse Rate 38 L 38 L 40 L Respiratory Rate 20 Blood Pressure 158/89 H Pulse Oximetry 97 06/12/18 21:00 06/12/18 22:00 06/12/18 23:00 Temperature Pulse Rate 38 L 34 L 38 L Respiratory Rate Blood Pressure Pulse Oximetry 06/13/18 00:00 06/13/18 01:00 06/13/18 02:00 Temperature 97.8 F Pulse Rate 30 L 31 L 32 L Respiratory Rate 20 Blood Pressure 155/87 H Pulse Oximetry 97 06/13/18 03:00 06/13/18 03:56 06/13/18 03:57 Temperature 98.2 F Pulse Rate 34 L 40 L 40 L Respiratory Rate 20 Blood Pressure 151/79 H Pulse Oximetry 96 06/13/18 05:00 06/13/18 05:54 06/13/18 07:00 Temperature Pulse Rate 32 L 34 L 35 L Respiratory Rate Blood Pressure Pulse Oximetry 06/13/18 08:00 06/13/18 09:00 06/13/18 10:00 Temperature 97.9 F Pulse Rate 33 L 32 L 32 L Respiratory Rate 18 Blood Pressure 171/68 H Pulse Oximetry 97 06/13/18 11:00 06/13/18 12:00 06/13/18 13:00 Temperature 97.8 F Pulse Rate 32 L 34 L 38 L Respiratory Rate 18 Blood Pressure 172/76 H Pulse Oximetry 95 06/13/18 14:00 06/13/18 15:00 06/13/18 16:00 Temperature 98.1 F Pulse Rate 32 L 34 L 35 L Respiratory Rate 16 Blood Pressure 175/69 H Pulse Oximetry 99 Intake & Output 06/12/18 06/13/18 06/13/18 18:59 06:59 18:59 Intake Total 1720 / 1720 480 / 480 1000 / 1000 Output Total 650 / 650 1100 / 1100 Balance 1070 / 1070 -620 / -620 1000 / 1000 Weight 130.3 kg Intake: IV 1000 / 1000 1000 / 1000 NS Inj 1,000 ML @ 70 mls/hr IV. 1000 / 1000 1000 / 1000 CONT .[id number] [facility] Rx#:[id number] Oral 720 / 720 480 / 480 Output: Urine 650 / 650 1100 / 1100 Other: # Bowel Movements 0 Narrative: GENERAL: Pleasant 67-year-old female, well-nourished well-developed appears to not acute distress. NECK: Trachea midline. No JVD. No carotid bruits noted. CARDIOVASCULAR: Bradycardic, no murmurs or clicks. RESPIRATORY: No accessory muscle use. Clear to auscultation. Breath sounds equal bilaterally. GASTROINTESTINAL: Abdomen soft/obese. + Bowel sounds MUSCULOSKELETAL: Extremities without clubbing, cyanosis, or edema. No obvious deformities. NEUROLOGICAL: Awake, alert, oriented x3. No obvious cranial nerve deficits. Motor grossly within normal limits. Five out of 5 muscle strength in the arms and legs. Normal speech. PSYCHIATRIC: Appropriate mood and affect; insight and judgment normal. Results Labs CBC & Chem 7: 06/12/18 06:54 06/12/18 06:54 Assessment and Plan (1) Third degree heart block: Code(s): I44.2 - Atrioventricular block, complete Status: Acute (2) Syncope: Code(s): R55 - Syncope and collapse Status: Acute (3) Hypertension: Code(s): I10 - Essential (primary) hypertension Status: Acute (4) Hyperlipidemia: Code(s): E78.5 - Hyperlipidemia, unspecified Status: Acute (5) Obesity: Code(s): E66.9 - Obesity, unspecified Status: Acute Plan 67-year-old with past medical history significant for hypertension, hyperlipidemia, arthritis who presents to the emergency department via [facility] after syncopal episode. Syncopal episode with fall Symptomatic bradycardia-HR 30's -Head CT, chest x-ray negative. Cervical CT with degenerative changes, bilateral femur x-rays with osteopenia, osteoarthritis, tricompartment noted of the right knee. Pelvis x-ray with osteopenia and once again noted arthritis of hips. -Initial EKG with sinus bradycardia -Obtain additional EKG, monitor on telemetry, consult cardiology for further recommendations, appreciate assistance. -Hold carvedilol and amlodipine - Plan fro 2D ECHO - POss PM on Wednesday 06/[address] Garcia cardio Hypertension, chronic BP on admission 141/110 -At the time my exam BP improved to 178/74 -Continue atorvastatin and hydrochlorothiazide Hypokalemia, mild -Replace with KCl p.o., recheck labs in the a.m. Mild leukocytosis, likely reactive to stress, recheck CBC in a.m. Hyperlipidemia -Resume statin once verified DVT prophylaxisSCD's/early ambulation Discussed Condition With: Patient, nurse Progress Note: Quality VTE Deep Vein Thrombosis/Pulmonary Embolism Present on Admission: No _ (1) Syncope Qualifiers: Encounter type: Syncope type: unspecified Qualified Code(s): R55 - Syncope and collapse (2) Hypertension Qualifiers: Hypertension type: (3) Hyperlipidemia Qualifiers: Hyperlipidemia type: (4) Obesity Qualifiers: Obesity type: Obesity classification: Serious obesity comorbidity presence : Body mass index:
[2018-06-14] MEDS: Sod Chloride 0.9% Inj 1,000 ML IV.CONT SCH ×3 (08:43→22:03)
[2018-06-14] MEDS: hydroCHLOROthiazide 25 MG Tablet PO SCH (08:46)
--- NOTE | 2018-06-14 12:31 | P.PNIM ---
Subjective Interval history: The patient is in bed she is a little bit anxious regarding the procedure. Blood pressure little bit elevated. Still bradycardic. No nausea or vomiting with lightheadedness. No fever or chills. No cough. Physical Exam Vital signs: Vital Signs 06/13/18 13:00 06/13/18 14:00 06/13/18 15:00 Temperature Pulse Rate 38 L 32 L 34 L Respiratory Rate Blood Pressure Pulse Oximetry 06/13/18 16:00 06/13/18 17:00 06/13/18 18:00 Temperature 98.1 F Pulse Rate 36 L 36 L 32 L Respiratory Rate 16 Blood Pressure 175/69 H Pulse Oximetry 99 06/13/18 19:00 06/13/18 20:00 06/13/18 21:00 Temperature 98.6 F Pulse Rate 33 L 35 L 37 L Respiratory Rate 20 Blood Pressure 157/67 H Pulse Oximetry 98 06/13/18 22:00 06/13/18 23:00 06/14/18 00:00 Temperature 98 F Pulse Rate 34 L 33 L 37 L Respiratory Rate 18 Blood Pressure 159/71 H Pulse Oximetry 98 06/14/18 01:00 06/14/18 02:00 06/14/18 03:00 Temperature Pulse Rate 35 L 33 L 30 L Respiratory Rate Blood Pressure Pulse Oximetry 06/14/18 04:00 06/14/18 05:00 06/14/18 06:00 Temperature 98.2 F Pulse Rate 33 L 34 L 37 L Respiratory Rate 18 Blood Pressure 151/74 H Pulse Oximetry 96 06/14/18 07:00 06/14/18 08:00 06/14/18 09:00 Temperature 97.9 F Pulse Rate 33 L 31 L 36 L Respiratory Rate 20 Blood Pressure 168/73 H Pulse Oximetry 97 06/14/18 10:00 06/14/18 10:53 06/14/18 11:58 Temperature 97.5 F L Pulse Rate 34 L 36 L 31 L Respiratory Rate 20 Blood Pressure 178/65 H Pulse Oximetry 99 Intake & Output 06/13/18 06/14/18 06/14/18 18:59 06:59 18:59 Intake Total 2260 / 2260 480 / 480 1000 / 1000 Output Total 900 / 900 2000 / 2000 Balance 1360 / 1360 -1520 / -1520 1000 / 1000 Weight 130.1 kg Intake: IV 1000 / 1000 1000 / 1000 NS Inj 1,000 ML @ 70 mls/hr IV. 1000 / 1000 1000 / 1000 CONT .[id number] [facility] Rx#:[id number] Oral 1260 / 1260 480 / 480 Output: Urine 900 / 900 1999 Other: # Bowel Movements 0 Narrative: GENERAL: Pleasant 67-year-old female, well-nourished well-developed appears to not acute distress. NECK: Trachea midline. No JVD. No carotid bruits noted. CARDIOVASCULAR: Bradycardic, no murmurs or clicks. RESPIRATORY: No accessory muscle use. Clear to auscultation. Breath sounds equal bilaterally. GASTROINTESTINAL: Abdomen soft/obese. + Bowel sounds MUSCULOSKELETAL: Extremities without clubbing, cyanosis, or edema. No obvious deformities. NEUROLOGICAL: Awake, alert, oriented x3. No obvious cranial nerve deficits. Motor grossly within normal limits. Five out of 5 muscle strength in the arms and legs. Normal speech. PSYCHIATRIC: Appropriate mood and affect; insight and judgment normal. Results Labs CBC & Chem 7: 06/12/18 06:54 06/12/18 06:54 Assessment and Plan (1) Third degree heart block: Code(s): I44.2 - Atrioventricular block, complete Status: Acute (2) Syncope: Code(s): R55 - Syncope and collapse Status: Acute (3) Hypertension: Code(s): I10 - Essential (primary) hypertension Status: Acute (4) Hyperlipidemia: Code(s): E78.5 - Hyperlipidemia, unspecified Status: Acute (5) Obesity: Code(s): E66.9 - Obesity, unspecified Status: Acute Plan 67-year-old with past medical history significant for hypertension, hyperlipidemia, arthritis who presents to the emergency department via [facility] after syncopal episode. Syncopal episode with fall Symptomatic bradycardia-HR 30's -Head CT, chest x-ray negative. Cervical CT with degenerative changes, bilateral femur x-rays with osteopenia, osteoarthritis, tricompartment noted of the right knee. Pelvis x-ray with osteopenia and once again noted arthritis of hips. -Initial EKG with sinus bradycardia -Obtain additional EKG, monitor on telemetry, consult cardiology for further recommendations, appreciate assistance. -Hold carvedilol and amlodipine - Plan fro 2D ECHO - PM on Wednesday 06/[address] Garcia cardio Hypertension, chronic BP on admission 141/110 -At the time my exam BP improved to 178/74 -Continue atorvastatin and hydrochlorothiazide Hypokalemia, mild -Replace with KCl p.o., recheck labs in the a.m. Mild leukocytosis, likely reactive to stress, recheck CBC in a.m. Hyperlipidemia -Resume statin once verified DVT prophylaxisSCD's/early ambulation Discussed Condition With: Patient, family at bedside, nurse Progress Note: Quality VTE Deep Vein Thrombosis/Pulmonary Embolism Present on Admission: No _ (1) Hyperlipidemia Qualifiers: Hyperlipidemia type: (2) Syncope Qualifiers: Encounter type: Syncope type: unspecified Qualified Code(s): R55 - Syncope and collapse (3) Hypertension Qualifiers: Hypertension type: (4) Obesity Qualifiers: Body mass index: Obesity classification: Obesity type: Serious obesity comorbidity presence:
[2018-06-14] MEDS ORDERED: Propofol Inj 500 MG/50 ML Vial ONE ×2 (13:50→13:51)
[2018-06-14] MEDS ORDERED: Glycopyrrolate Inj 1 MG/5 ML Syringe IV.PUSH ONE (13:59)
[2018-06-14] MEDS ORDERED: Sodium Chlor 0.9% Inj 250 ML IV.CONT ONE (13:59)
[2018-06-14] MEDS ORDERED: SODIUM CHLOR 0.9% IV.CONT ONE (13:59)
[2018-06-14] MEDS ORDERED: Lidocaine 2% Inj 50 ML Vial ONE (14:13)
[2018-06-14] MEDS ORDERED: ceFAZolin 1 GM Premix Inj 3 GM/150 ML PIGGYBACK IV.SIG ONE (14:14)
[2018-06-14] MEDS ORDERED: Sodium Chlor 0.9% Inj 250 ML ONE (14:15)
--- NOTE | 2018-06-14 15:50 | CATHPROC ---
Patient Name: Isela Guillaume Study #: [id number] Initial MD: Marco Antonio Garcia Date of : 1950 Study Date: 06/14/2018 Cardiac Catheterization Report 06/14/2018 3:50:38 PM Financial #: [id number] 1 of Patient Name: Isela Guillaume Study #: [id number] Initial MD: Marco Antonio Garcia Date of : 1950 Study Date: 06/14/2018 Entire Case Report Patient Information Patient Name Isela Guillaume Date of 1950 Age 67 years Financial # [id number] Gender F AlternateID Lab Number 6 Room Number 246 Height (in) 70.0 Height (cm) 177.8 BSA 2.43 Weight (lbs) 286.2 Weight (kg) 130.1 Patient Address/Phone Number Home Address [facility] Home Phone Number [address] [phone] Study Information Study Number Admission Scheduled Start Study Start [id number] Jun 11 2018 5:51PM 06/14/2018 Jun 14 2018 1:10PM [place] Service Electrophysiology Study Admit Source Facility Department Other [facility] - Carbon Capture Power Plant Engineer Physician and Clinical Staff Initial Marco Antonio Garcia Banking Services Clerk Polo Bryant,RT(R) Banking Services Clerk Naima Frias,JAPANESE INTERPRETER TECH2 Other Anesthesia, EQUIPMENT MAINTENANCE ENGINEER Recorder Yana West RN Recorder Celina Escobedo RN Scrub Dori Soler,JAPANESE INTERPRETER Procedures Performed Procedure Lead Insertion 06/14/2018 3:50:38 PM Financial #: [id number] 2 of Patient Name: Isela Guillaume Study #: [id number] Initial MD: Marco Antonio Garcia Date of : 1950 Study Date: 06/14/2018 Equipment Time Sheet Music Salesperson Description Size Mfg Part Number Used/Scraped INTRODUCER SET, 14:16 [employer] FR 5 [id number] *[id number] Used MICROPUNCTURE STIFF INTRODUCER SET, 14:16 [employer] FR 5 [id number] *[id number] Used MICROPUNCTURE STIFF 14:16 DR FERNANDEZ, RAYSNYELD X-RAY 12X17 12X17 D-100 *[id number] Used [id number] 14:16 [employer] BLANKET,WARM AIR CCL * Used *[id number] 6661EZ 14:16 [employer] DRAPE, IOBAN 2 6661EZ 26cm x 20cm Used *[id number] 6661EZ 15:02 [employer] DRAPE, IOBAN 2 6661EZ 26cm x 20cm Used *[id number] TP-1103 14:16 [employer] SUTURE, STRIP PLUS 1/2" * Used *[id number] 14:16 [employer] PACER ADHESIVE, MASTISOL 2/3CC 2/3CC 0523-48 Used 14:16 [employer] PACER RICH, LIMB * 2530 *[id number] Used [id number] 14:16 [employer] PACER PACK, PACER CUSTOM * Used *[id number] 14:16 [employer] PACER PEN, SKIN DUAL W/ RULER * Used *[id number] 15:07 [employer] PACER SAFE SHEATH, FR8, 13CM FR 8 CLS-1008 Used 15:07 [employer] PACER SAFE SHEATH, FR8, 13CM FR 8 CLS-1008 Used PROBE COVER, STERILE OR0927 14:16 [employer]ICAL * Used ULTRASOUND W/ GEL *[id number] 14:32 Needle Sponge Count 2 22 Used 14:32 Needle Sponge Count 30 1 Used 14:31 Needle Sponge Count 6 6 Used [id number] *[id number] SUTURE, 0 ETHIBOND [CT1] (CX21D), 8pk SUTURE, 2-0 VICRYL [CT1] (AEH642V) SUTURE, 2-0 VICRYL [CT1] (YHL571I) SUTURE, 4-0 VICRYL [PS2] (VUI302S) LEAD, TENDRIL ACTIVE FIXATION 15:08 [employer] 58 [id number] Used BIPOLAR 15:17 [employer] PORTRAIT CONSULTANT, TENDRIL MRI 46CM [id number] Used PACEMAKER, ASSURITY DR ECHEVERRIA 15:19 [employer] [id number] Used MRI [facility] PAD, ELECTROSURGICAL 14:16 * [id number] *[id number] Used SURGICAL GROUNDING ORANGE 8853-3662 14:16 [employer] RADHA. / * Used *09550 06/14/2018 3:50:38 PM Financial #: [id number] Patient Name: Isela Guillaume Study #: [id number] Initial MD: Marco Antonio Garcia Date of : 1950 Study Date: 06/14/2018 Equipment Model, Serial, Lot Number and Expiration Data Description Model Number Serial Number Lot Number Expiration Date LEAD, TENDRIL ACTIVE FIXATION [id number] 07-19-2019 BIPOLAR LEAD, TENDRIL MRI [id number] 05-12-2019 Insurance Information Insurance Payor Medicare Third Democrat Third Democrat Number WELLCARE MEDICARE ADV WELLCRMR O History: Allergies Allergy Reaction No Known Allergies History: Risk Factors Family History of Hypertension Dyslipidemia Previous MT Previous Heart Failure Premature CAD Yes Yes No No No Prior Valve Prior PCI Prior CABG Surgery No No No Cerebrovascular Peripheral Artery Chronic Lung On Dialysis Diabetes Disease Disease Disease No No No No No History: Risk Factors Selection Items Current Smoker Labs Hgb (g/dl) Hct (%) RBC (MIL/MM3) WBC (l/cumm) Platelets (thousands) 11.60-17.00 35.00-51.00 4.00-5.90 4.00-11.00 150.00-450.00 13.0 40 5 11 168 Glucose (mg/dl) BUN (mg/dl) Creatinine (mg/dl) BUN:Creatinine (1:x) 74.00-106.00 7.00-18.00 0.50-1.30 10.00-20.00 90 26 0.8 32.5 Na (meq/l) K (meq/l) 136.00-145.00 3.50-5.10 143 3 INR (PTT:PT) 0.90-1.10 1.2 06/14/2018 3:50:38 PM Financial #: [id number] Patient Name: Isela Guillaume Study #: [id number] Initial MD: Marco Antonio Garcia Date of : 1950 Study Date: 019 Medication Medication Total Dose (Bolus/Oral) Medication Total Dosage/Unit 2% XYLOCAINE 50 mL Medications (Bolus/Oral) Medication Time Given Dosage/Unit Administered By Reason 2% XYLOCAINE 06/14/2018 2:52:09 PM 50 mL Marco Antonio Garcia 50 mL 2% XYLOCAINE given in lab by Marco Antonio Garcia in Left shoulder via Subcutaneous. Ordered by Marco Antonio Watson. Medication (Drip) Medication Time Given Dosage/Unit Concentration/Unit Diluent (ml) Solution ANCEF 06/14/2018 2:37:33 PM 3 g 3 g ANCEF given in lab by Anesthesia, EQUIPMENT MAINTENANCE ENGINEER via Peripheral IV. Ordered by Marco Antonio Garcia. Reason: As per physicians verbal order. IV Solutions 06/14/2018 1:35:44 PM 0 mL (IV) NaCl .9 Patient arrived on IV Solutions in Right Forearm via Peripheral IV. Pump/Drip Flow = 20 ml/hr using N aCl .9. Reason: As per physicians verbal order. IV Solutions 06/14/2018 2:14:29 PM 0 mL (IV) NaCl .9 IV Solutions given in lab by Anesthesia, EQUIPMENT MAINTENANCE ENGINEER in Left Wrist via Peripheral IV. Pump/Drip Flow = 20 ml /hr using NaCl .9. Ordered by Marco Antonio Garcia. Reason: As per physicians verbal order. VANCOMYCIN DRIP 06/14/2018 2:27:54 PM 1 g 1 g VANCOMYCIN DRIP given in lab by Anesthesia, EQUIPMENT MAINTENANCE ENGINEER via Peripheral IV. Ordered by Marco Antonio Garcia. R remington: As per physicians verbal order. 06/14/2018 3:50:38 PM Financial #: [id number] 5 of 11 Patient Name: Isela Guillaume Study #: [id number] Initial MD: Marco Antonio Garcia Date of : 1950 Study Date: 06/14/2018 Initial Case Assessment Cardiovascular HR Rhythm 35 3DHB Edema Present Skin color Skin None Normal Warm Dry Circulatory - Right Pulses Dorsalis Pedis 1 Scale (0,1,2,3,4,d) Circulatory - Left Pulses Dorsalis Pedis 1 Scale (0,1,2,3,4,d) Circulatory - Lower Extremities Color Lower Right Color Lower Left Normal Normal Neurological State Oriented to time-place- Alert Moves all extremities person Respiration - General Respiration Rate SpO2 (%) (B/min) 18 99 06/14/2018 3:50:38 PM Financial #: [id number] 6 of 11 Patient Name: Isela Guillaume Study #: [id number] Initial MD: Marco Antonio Garcia Date of : 1950 Study Date: 06/14/2018 Initial Case Assessment Cardiovascular HR Rhythm NIBP 29 3DHB 130/69 Edema Present Skin color Skin None Normal Warm Dry Circulatory - Right Pulses Dorsalis Pedis 1 Scale (0,1,2,3,4,d) Circulatory - Left Pulses Dorsalis Pedis 1 Scale (0,1,2,3,4,d) Circulatory - Lower Extremities Color Lower Right Color Lower Left Normal Normal Neurological State Oriented to time-place- Alert Moves all extremities person Respiration - General Respiration Rate SpO2 (%) (B/min) 18 100 06/14/2018 3:50:38 PM Financial #: [id number] Patient Name: Isela Guillaume Study #: [id number] Initial MD: Marco Antonio Gracia Date of : 1950 Study Date: 06/14/2018 Final Case Assessment Cardiovascular HR Rhythm NIBP Chest Pain 94 coke production heater 179/83 0 Edema Present Skin color Skin None Normal Warm Dry Circulatory - Right Pulses Radial 1 Scale (0,1,2,3,4,d) Circulatory - Left Pulses Radial 1 Scale (0,1,2,3,4,d) Circulatory - Lower Extremities Color Lower Right Color Lower Left Normal Normal Neurological State Drowsy Moves all extremities Respiration - General Respiration Rate SpO2 (%) (B/min) 16 99 Chronological Log Time Study Chronological Log 13:31:59 Patient arrived via Bed and waiting to enter room. 13:32:41 Patient Name, D.O.B, / Armband Verified By R.N. 13:32:49 2% CHLORHEXIDINE GLUCONATE WASH AND NASAL SWIPE DONE PRIOR TO PROCEDURE. 13:33:00 Pre-op and post- op instructions given; patient acknowledges understanding of instructions. 13:33:32 Patient has been NPO for More than 6Hrs. 13:33:38 Skin Breakdown- none per pt. 13:33:38 Verbal Stimulation=2 Physical Stimulation=1 Airway=2 Respiration=2 TOTAL=7. (0=absent, 1=li mited, 2=present) 13:34:50 History and physical on the chart or being dictated. 13:35:41 A # 20 IV was noted in the Antecubital (left). Grade = 3. leaking/red. Site D/C'd 06/14/2018 3:50:38 PM Financial #: [id number] Patient Name: Isela Guillaume Study #: [id number] Initial MD: Marco Antonio Garcia Date of : 1950 Study Date: 06/14/2018 13:35:44 A # 20 IV was noted in the Forearm (right). Grade = 0 Patient arrived on IV Solutions in Right Forearm via Peripheral IV. Pump/Drip Flow = 20 ml/hr u sing NaCl .9. Reason: 13:35:44 As per physicians verbal order. 13:35:52 Disposable Defibrillator Pads Placed On Patient. 13:38:25 Consent signed by the physician and the patient and verified by the Carbon Capture Power Plant Engineer staff. 13:45:52 Anesthesia at bedside. Assumes care of patient. 13:55:00 Left AC IV site is leaking. D/C'd. A new 2nd IV was placed on 2nd attempt to Lt Hand/wrist by MM. 13:58:[address] Garcia re: need to sign chest. Pt educated on left vs right potential and s tated understanding. 13:59:41 Patient entered room via Bed. 14:00:09 A # 20 IV was noted in the Wrist LT. Grade = 0 14:02:26 Legs elevated and fluid boluses infusing as per order Dr. Garcia. 14:08:14 Table restraints applied according to hospital policy 14:11:35 Patient Warmer Placed on the Table. 14:11:37 Mignon Prominences Protected 14:12:32 Bovie ground pad applied to: RT thigh IV Solutions given in lab by Anesthesia, EQUIPMENT MAINTENANCE ENGINEER in Left Wrist via Peripheral IV. Pump/Drip Flow = 20 ml/hr using NaCl .9. 14:14:29 Ordered by Marco Antonio Garcia. Reason: As per physicians verbal order. Assessment: Initial Case, HR=35 BPM, Rhythm=3DHB, Edema=None, Color=Normal, Skin = Warm, Dry Right Pulses: Farhat Ped=1 Left Pulses: Farhat Ped=1 14:15:18 Lower Right Extremities: Color=Normal Lower Left Extremities: Color=Normal Neurological: State=Alert, Ox3, MCDANIELS Respiration: Resp=18 B/min, SpO2=99 % 14:16:45 Reference ECG taken 14:20:29 MD arrived and signed LT chest. Assessment: Initial Case, HR=29 BPM, Rhythm=3DHB, OJDV=129/69 mmhg, Edema=None, Color=Normal, S kin = Warm, Dry Right Pulses: Farhat Ped=1 Left Pulses: Farhat Ped=1 14:24:11 Lower Right Extremities: Color=Normal Lower Left Extremities: Color=Normal Neurological: State=Alert, Ox3, MCDANIELS Respiration: Resp=18 B/min, XxC3=841 % 14:25:48 Anesthesiologist present for LMA insertion. 1 g VANCOMYCIN DRIP given in lab by Anesthesia, EQUIPMENT MAINTENANCE ENGINEER via Peripheral IV. Ordered by Amadou Garcia. Reason: As 14:27:54 per physicians verbal order. 14:30:16 Bilateral Upper Chest Prepped Times Two. MM and DB First Sponge And Instrument Count Done by Dori Soler RCIS. 14:30:41 Hypo's: 6, Sponges: 30, Bovie/scratch: 2 Sutures: 11, Blades: 2, Instruments: 26, Syveck Patches: 0 verified by RW 3 g ANCEF given in lab by Anesthesia, EQUIPMENT MAINTENANCE ENGINEER via Peripheral IV. Ordered by Marco Antonio Garcia. Reaso n: As per physicians 14:37:33 verbal order. 14:39:00 A sterile drape was applied after a 5 minute prep drying time. 14:44:31 Ioban drape applied 06/14/2018 3:50:38 PM Financial #: [id number] Patient Name: Isela Guillaume Study #: [id number] Initial MD: Marco Antonio Garcia Date of : 1950 Study Date: 06/14/2018 Time Out. Correct patient, procedure, procedure equipment, site and side verified with physicia n present. Time 14:51:00 concurred by MD, individual staff and EQUIPMENT MAINTENANCE ENGINEER. Time Out #2 - Consents verified, patient in correct position, all results are labled and displa yed, safety precautions 14:51:30 taken, antibiotics administered. Time out concurred by MD, individual staff and EQUIPMENT MAINTENANCE ENGINEER in procedu re 14:52:07 Case Start 14:52:09 50 mL 2% XYLOCAINE given in lab by Marco Antonio Garcia in Left shoulder via Subcutaneous. Order ed by Marco Antonio Garcia. 14:54:21 Vascular access was obtained in the Subclav. Vein (Lft. 14:54:29 Wire inserted 14:54:30 Vascular access was obtained in the Subclav. Vein (Lft. 14:54:34 Wire inserted 14:56:25 Surgical Incision Made. 14:59:09 A pocket was created at the Lt. upper chest. 14:59:20 Two antibiotic sponges put into the surgical pocket. A INTRODUCER SET, MICROPUNCTURE STIFF FR 5 was advanced into the Subclav. Vein (Lft using the M odified 15:01:58 Seldinger technique. A INTRODUCER SET, MICROPUNCTURE STIFF FR 5 was advanced into the Subclav. Vein (Lft using the M odified 15:02:10 Seldinger technique. 15:09:06 A SAFE SHEATH, FR8, 13CM FR 8 was advanced into the Subclav. Vein (Lft using the Modified S eldinger technique. 15:09:55 A SAFE SHEATH, FR8, 13CM FR 8 was advanced into the Subclav. Vein (Lft using the Modified S eldinger technique. 15:11:55 A LEAD, TENDRIL ACTIVE FIXATION BIPOLAR 58 was inserted and positioned in the RV. 15:12:00 Lead placement verified under fluoroscopy 15:12:06 The RV lead impedance and threshold being tested. 15:15:25 The RV lead was sutured to the fascia. 15:22:10 A LEAD, TENDRIL MRI 46CM was inserted and positioned in the RA. 15:22:27 Lead placement verified under fluoroscopy 15:22:47 The Atrial lead impedance and threshold is being tested. 15:24:10 The Atrial lead was sutured to the fascia. 15:27:10 Antibiotic sponges removed from the surgical pocket. 15:27:15 Pocket flushed with antibiotic solution 15:27:45 A PACEMAKER, ASSURITY DR RF MRI was connected and placed in the pocket. Second Sponge And Instrument Count Done by Dori Soler RCIS. 15:34:00 Hypo's: 6, Sponges: 30, Bovie/scratch: 2 Sutures: 11, Blades: 2, Instruments: ~INSTRU~, Syveck Patches: 0 verified by RW 15:41:52 Implant Procedure was performed. 15:42:00 A PPM Implant . (Dual) 15:42:15 PACU called. Spoke to Yves 15:42:42 Bedside Report will be given. 15:47:00 The pocket was closed. 15:47:02 Case End (Physician broke scrub) Final Sponge And Instrument Count Done by Dori Soler RCIS. 15:48:06 Hypo's: 6, Sponges: 30, Bovie/scratch: 2 Sutures: 11, Blades: 2, Instruments: 26, Syveck Patches: 0 verified by RW 06/14/2018 3:50:38 PM Financial #: [id number] Patient Name: Isela Guillaume Study #: [id number] Initial MD: Marco Antonio Garcia Date of : 1950 Study Date: 06/14/2018 15:49:25 Sterile dressing applied to site 15:49:26 No case complications noted. 15:49:26 Cine recording checked. 15:49:29 Implantable Device card placed in patient's chart. 15:49:31 Defibrillator and ground pads removed. Skin intact. Assessment: Final Case, HR=94 BPM, Rhythm=coke production heater, PEDK=500/83 mmhg, Chest Pain=0, Edema=None, Col or=Normal, Skin = Warm, Dry Right Pulses: Radial=1 Left Pulses: Radial=1 15:49:52 Lower Right Extremities: Color=Normal Lower Left Extremities: Color=Normal Neurological: State=Drowsy, MCDANIELS Respiration: Resp=16 B/min, SpO2=99 % 15:55:36 A sling was placed on the affected arm. 15:57:45 Patient moved to [facility] End Study - Contrast Media Used In Study Contrast Total Opened (mL) Total Used (mL) Total Wasted (mL) Unspecified 0 0 0 End Study - Maximum Contrast Load Max Contrast Load (mL) 813.1 End Study - Radiation Exposure Fluoro Time Fluoro Dose (mGy) Cine Dose (uGym2) (minutes) 2.6 47 839 End Study - Patient Disposition Complications Transferred To Telemetry Bed 06/14/2018 3:50:38 PM Financial #: [id number]
--- NOTE | 2018-06-14 16:08 | P.DS ---
DS: Providers Date of admission: 06/11/18 17:51 Primary care physician: UNKNOWN Consults: 06/11/18 17:48 Consult to Cardiology Routine Consulting Provider: Marco Antonio Garcia Does the patient have a Tap And Die Maker Technician who follows them?: No Preferred Field Service Poultry Technician:: Motors And Generators Inspector Physician Reason for Consultation: syncope/bradycardia Notified:: Service Spoke with:: Billie Date Notified:: 06/11/18 Time Notified:: 17:50 Ordering Provider: JENNIFER Brief History from admission: 67-year-old with past medical history significant for hypertension, hyperlipidemia, arthritis who presents to the emergency department via [facility] after syncopal episode. Patient is seen and examined in the emergency department with family member present. Apparently patient reports that she was getting into the shower when she passed out. She denies any dizziness, lightheadedness, chest pain, shortness of breath just prior to syncopal episode. Does not remember how episode occurred but family who was present reports patient was thought to be in cardiac arrest and mouth-to -mouth respirations were provided. Shortly after episode patient was also fairly confused and [facility] was called and patient was transported to [facility]. No reports of fecal, urinary incontinence or tongue biting during syncopal episode. Patient reports that she had syncopal episode about 1 year ago where nothing acute was found, she was treated for hypertension and hyperlipidemia at that time. She reports that normally her blood pressure at home runs systolic [id number]. She states she normally takes her blood pressure medication however skips meds on the days that she goes to the gym like today. She does note that her heart rate was 32 yesterday. She reports being on a keto diet for the past 4 weeks for weight loss. She denies any recent illness, nausea, vomiting or diarrhea. At the moment patient reports dizziness has improved, denies any chest pain, lightheadedness, vision changes. She states that she is feeling better although is concerned regarding her heart rate. She also complains of hip soreness and knee pain although endorses a history of arthritis and is aware that she needs knee replacements. She also complains of some jaw pain but no limited range of motion. DS: Diagnosis Discharge Diagnosis (1) Third degree heart block: Status: Acute (2) Syncope: Status: Acute (3) Hypertension: Status: Acute (4) Hyperlipidemia: Status: Acute (5) Obesity: Status: Acute DS: Summary 7-year-old with past medical history significant for hypertension, hyperlipidemia, arthritis who presents to the emergency department via [facility] after syncopal episode. Syncopal episode with fall Symptomatic bradycardia-HR 30's-m Complete 3rd degree heart block -Head CT, chest x-ray negative. Cervical CT with degenerative changes, bilateral femur x-rays with osteopenia, osteoarthritis, tricompartment noted of the right knee. Pelvis x-ray with osteopenia and once again noted arthritis of hips. -Initial EKG with sinus bradycardia -Obtain additional EKG, monitor on telemetry, consult cardiology for further recommendations, appreciate assistance. -Hold carvedilol and amlodipine -2D ECHO Echo on 06/12/18 showed an EF 55-60%, mild MR, mild TR and small pericardial effusion. - s/p dual chamber PM placement by Dr Garcia on 06/14/18 Hypertension, chronic HLD -Continue atorvastatin and hydrochlorothiazide Hypokalemia, mild -Replace with KCl p.o., recheck labs in the a.m.Monitor and replace as need Mild leukocytosis, likely reactive to stress Hyperlipidemia -Resume statin Time Spent with Patient Total time spent providing and/or coordinating discharge services: > 30 min Quality: VTE Deep Vein Thrombosis/Pulmonary Embolism Present on Admission: No Exam Narrative Exam Narrative: GENERAL: Pleasant 67-year-old female, well-nourished well- developed appears to not acute distress. CARDIOVASCULAR: Bradycardic, no murmurs or clicks. RESPIRATORY: No accessory muscle use. Clear to auscultation. Breath sounds equal bilaterally. GASTROINTESTINAL: Abdomen soft/obese. + Bowel sounds MUSCULOSKELETAL: Extremities without clubbing, cyanosis, or edema. No obvious deformities. NEUROLOGICAL: Awake, alert, oriented x3. No obvious cranial nerve deficits. Motor grossly within normal limits. Five out of 5 muscle strength in the arms and legs. Normal speech. PSYCHIATRIC: Appropriate mood and affect; insight and judgment normal. Results Impressions ITS Impressions Chest X-Ray 06/11/18 14:19 CONCLUSION: Negative for acute process Cervical Spine CT 06/11/18 14:24 CONCLUSION: 1. Degenerative changes without fracture or listhesis. Femur X-Ray 06/11/18 14:24 CONCLUSION: Slight osteopenia, extensive osteoarthritis right hip joint and tricompartment of the knee. Head CT 06/11/18 14:24 CONCLUSION: 1. Negative for acute process . . Pelvis X-Ray 06/11/18 14:24 CONCLUSION: Slight osteopenia, extensive osteoarthritis bilateral hip joints . Discharge Plan Discharge Disposition Patient Disposition: 01 Discharge Home Discharge Condition Condition: Stable Discharge Order Discharge Orders: Discharge Order (Routine); Ordered 06/15/18 Ordered By: Maria G Price Discharge Details Anticipated Discharge Date: 06/15/18 Discharge Comment: DC when cleared by cardiology Dr Garcia Physicians Team Primary Care Provider: UNKNOWN, Attending Provider: Maria G Price Other Providers: Marco Antonio Garcia Rxs /Orders / Referrals /Forms Prescriptions: Continue atorvastatin 10 mg Tablet 10 mg PO QPM RF: 0 amlodipine 10 mg Tablet 10 mg PO DAILY RF: 0 hydrochlorothiazide 25 mg Tablet 25 mg PO DAILY RF: 0 Discontinued carvedilol 12.5 mg Tablet 12.5 mg PO BID RF: 0 Referrals: Marco Antonio Garcia MD [Physician] - See Instructions ( Please call the physician 's office to book the appointment to be seen within [1-2 weeks ].) UNKNOWN, [Primary Care Provider] - See Instructions ( Please call the physician's office to book the appointment to be seen within [2-3 days with your PCP]. If no rinsurance can follow up at [facility] ) Discharge Instructions Patient Printed Instructions: Pacemaker (DC) Discharge Interventions Interventions: Discharge Planning - Case Management Last Done: 06/14/18 10:10 Status ED Status: Left Department
[2018-06-14] MEDS ORDERED: Morphine Inj 4 MG/ML Vial ONE (16:29)
[2018-06-14] MEDS ORDERED: fentaNYL Citrate Inj 100 MCG/2 ML Ampul ONE (16:29)
--- NOTE | 2018-06-14 16:43 | MR ---
cc: Marco Antonio Garcia MD DATE: 06/14/2018 PREOPERATIVE DIAGNOSIS: Third-degree atrioventricular block with severe symptomatic bradycardia. PROCEDURE PERFORMED: Placement of [employer] dual-chamber MRI-compatible pacemaker. ACCESS SITE: Left subclavian vein. EQUIPMENT USED: Generator: [employer] MRI, model [id number], dual-chamber, MRI-compatible pacemaker, serial #[id number]. Right atrial lead: [employer] model [id number]-18 cm screw-in atrial lead, serial number [id number]. Right ventricular lead: [employer] model TCP3734I-00 cm screw-in ventricular lead, serial number [id number]. LEAD TESTING: Right ventricular lead: R-wave 6.9 millivolts with impedance of 780 ohms, pacing threshold 0.5 volts at 0.5 milliseconds. Right atrial lead: P-wave 3.9 millivolts, lead impedance 390 ohms, pacing threshold 0.75 volts at 0.5 milliseconds. Pacing at 10 volts. No diaphragmatic stimulation. PARAMETERS: Mode DDD, lower rate 90, upper rate 120. PROCEDURE NARRATIVE: After the patient was prepped and draped in usual sterile manner and was sedated by anesthesia, local anesthesia was subsequently applied to the left upper subclavicular area. A pocket was created below the left clavicle. Atrial and ventricular lead were placed, and good thresholds were obtained. The device was connected to the leads and was placed in the pocket. The pocket was closed in 3 layers. The patient remained stable and was transferred to the floor in stable condition. DIAGNOSIS: Successful placement of [employer] dual-chamber MRI-compatible pacemaker. DISPOSITION: Ms. Guillaume will be monitored on telemetry after her procedure. We will continue perioperative antibiotics. The patient will be seen back for a wound check and permanent device reprogramming in our office as outpatient. Marco Antonio Garcia MD OQ/ermelinda , 03:42 PM , 03:49 PM [facility]
[2018-06-14] MEDS ORDERED: *Enalaprilat Inj 1.25 MG/ML Vial IV.PUSH ONE (16:50)
--- NOTE | 2018-06-14 17:08 | XR ---
EXAM DATE: 06/14/2018 5:05 PM EST AGE/SEX: 67 years / Female INDICATIONS: Post pacemaker insertion. Evaluate for pneumothorax. CLINICAL DATA: This is the patient's initial encounter. Patient reports that signs and symptoms have been present for 1 day and indicates a pain score of 7/10. MEDICAL/SURGICAL HISTORY: Cardiovascular disease. Pacemaker. COMPARISON: [facility] [place], CHEST 1V SINGLE AP, 06/11/2018. . FINDINGS: There is patchy basilar airspace disease and hazy left lung opacity identified suspect for underlying airspace disease. There are no definite effusions. Cardiomegaly is present and the lung volumes are diminished. Dual-lead pacer device from a left subclavian transvenous approach is noted. No obvious p neumothorax. CONCLUSION: Patchy airspace disease or atelectasis noted. No evidence of pneumothorax status post pacer placement . Electronically signed by: Leo Peace MD Board Certified Radiologist 06/14/2018 5:07 PM EST
[2018-06-14 18:30] LABS: Calcium 8.8 mg/dL (8.5-10.1); Carbon Dioxide 24.3 meq/L (21.0-32.0); Magnesium 1.9 mg/dL (1.5-2.5); Potassium 3.9 meq/L (3.5-5.1)
[2018-06-14] MEDS: VANCOMYCIN IV.SIG SCH (22:02)
[2018-06-14] MEDS: Carvedilol 12.5 MG Tablet PO SCH (22:02)
[2018-06-14] MEDS: ceFAZolin Inj 3,000 MG in Sodium Chlor 0.9% Inj 100 ML IV.SIG SCH (22:02)
[2018-06-14] MEDS: SODIUM CHLOR 0.9% IV.SIG SCH (22:02)
[2018-06-15] MEDS: ceFAZolin Inj 3,000 MG in Sodium Chlor 0.9% Inj 100 ML IV.SIG SCH ×2 (04:35→13:46)
[2018-06-15] MEDS: SODIUM CHLOR 0.9% IV.SIG SCH (09:45)
[2018-06-15] MEDS: VANCOMYCIN IV.SIG SCH (09:45)
[2018-06-15] MEDS: Carvedilol 12.5 MG Tablet PO SCH (09:46)
[2018-06-15] MEDS: hydroCHLOROthiazide 25 MG Tablet PO SCH (09:46)
--- NOTE | 2018-06-15 13:12 | P.PNCA ---
Subjective Interval history: Patient denies any pressure, palpitations, dizziness, edema or SOB. She does complain of mild left chest tenderness s/p pacemaker placement. Medications and Allergies Allergies Allergy/AdvReac Type Severity Reaction Status Date / Time No Known Allergies Allergy Unverified 06/03/17 12:20 Home Medications Medication Instructions Recorded Confirmed Type amlodipine 10 mg PO DAILY 06/11/18 06/11/18 History atorvastatin 10 mg PO QPM 06/11/18 06/11/18 History hydrochlorothiazide 25 mg PO DAILY 06/11/18 06/11/18 History Active Medications: Active Medications Acetaminophen (Tylenol) 650 mg PO Q4H PRN PRN Reason: PAIN 1-10 OR TEMP > 101 F Last Admin: 06/15/18 04:49 Dose: 650 mg Atorvastatin Calcium (Lipitor) 10 mg PO QPM [facility] Last Admin: 06/14/18 17:32 Dose: Not Given Carvedilol (Coreg) 12.5 mg PO BID [facility] Last Admin: 06/15/18 09:46 Dose: 12.5 mg Enalaprilat (Vasotec Inj) 1.25 mg IV.PUSH Q6H PRN PRN Reason: SBP>160, DBP>90 Last Admin: 06/13/18 17:12 Dose: 1.25 mg Hydrochlorothiazide (Hydrodiuril) 25 mg PO DAILY [facility] Last Admin: 06/15/18 09:46 Dose: 25 mg Sodium Chloride (Ns Inj) 1,000 mls @ 70 mls/hr IV.CONT .[id number] [facility] Last Admin: 06/14/18 22:03 Dose: 70 mls/hr Cefazolin Sodium 3,000 mg/ (Sodium Chloride) 130 mls @ 100 mls/hr IV.SIG Q8H [facility] Stop: 06/15/18 13:17 Last Infusion: 06/15/18 06:15 Dose: Infused Miscellaneous Information (Misc Nursing Information) 0 each OTHER UNSCH PRN PRN Reason: SEE LABEL COMMENTS Stop: 06/15/18 16:17 Physical Exam Vital signs: Vital Signs 06/14/18 16:16 06/14/18 16:30 06/14/18 16:45 Temperature 97.3 F L 97.3 F L 97.3 F L Pulse Rate 90 90 90 Respiratory Rate 14 14 14 Blood Pressure 168/79 H 174/80 H 182/82 H Pulse Oximetry 98 94 L 95 06/14/18 17:00 06/14/18 17:15 06/14/18 17:30 Temperature 97.3 F L 97.3 F L Pulse Rate 90 90 90 Respiratory Rate 17 18 Blood Pressure 169/79 H 171/65 H Pulse Oximetry 93 L 93 L 06/14/18 17:48 06/14/18 19:00 06/14/18 20:00 Temperature 97.8 F 98.8 F Pulse Rate 93 H 90 90 Respiratory Rate 16 18 Blood Pressure 164/71 H 155/76 H Pulse Oximetry 98 92 L 06/14/18 21:00 06/14/18 22:00 06/14/18 23:00 Temperature Pulse Rate 90 90 90 Respiratory Rate Blood Pressure Pulse Oximetry 06/14/18 23:21 06/15/18 00:00 06/15/18 01:00 Temperature 98.0 F Pulse Rate 90 90 90 Respiratory Rate 18 Blood Pressure 168/91 H Pulse Oximetry 96 06/15/18 02:00 06/15/18 03:00 06/15/18 03:59 Temperature 98.2 F Pulse Rate 90 90 74 Respiratory Rate 16 Blood Pressure 146/80 H Pulse Oximetry 98 06/15/18 04:00 06/15/18 05:00 06/15/18 06:00 Temperature Pulse Rate 90 90 90 Respiratory Rate Blood Pressure Pulse Oximetry 06/15/18 07:00 06/15/18 08:00 06/15/18 09:00 Temperature 97.6 F Pulse Rate 90 70 90 Respiratory Rate 16 Blood Pressure 157/77 H Pulse Oximetry 97 06/15/18 10:00 06/15/18 12:00 Temperature 98.2 F Pulse Rate 70 81 Respiratory Rate 20 Blood Pressure 143/83 H Pulse Oximetry 89 L Intake & Output 06/14/18 06/15/18 06/15/18 18:59 06:59 18:59 Intake Total 2270 / 2270 1869.5 / 1869.5 Output Total 1700 / 1700 1500 / 1500 Balance 570 / 570 369.5 / 369.5 Weight 130.9 kg Intake: IV 2150 / 2150 1629.5 / 1629.5 NS Inj 250 ML @ 0 mls/hr .ROUTE 250 / 250 .[facility] Rx#:[id number] NS Inj 1,000 ML @ 70 mls/hr IV. 1999 / 1999 600 / 600 CONT .[id number] [facility] Rx#:[id number] Vancomycin Inj 1,950 MG In NS 519.5 / 519.5 Inj 500 ML @ 250 mls/hr IV.SIG Q12H [facility] Rx#:[id number] Ancef 1 GM Premix Inj 3 gm In 150 / 150 150 ml @ 0 mls/hr IV.SIG .[facility] Rx#:[id number] Ancef Inj 3,000 MG In NS Inj 260 / 260 100 ML @ 100 mls/hr IV.SIG Q8H [facility] Rx#:[id number] Oral 120 / 120 240 / 240 Output: Urine 1700 / 1700 1500 / 1500 - Constitutional no acute distress - Routine HEENT Exam Head: Present: normocephalic Eye: Present: PERRL ENT: Present: mucous membranes moist - Routine Neck Exam Present: supple - Routine Respiratory Exam Present: CTA bilaterally - Routine Cardiovascular Exam Present: S1, S2 Comments: Paced - Routine Abdominal Exam Present: normoactive bowel sounds - Routine Extremities Exam Present: full ROM, pulses intact, normal capillary refill. Absent: cyanosis, clubbing, edema - Routine Skin Exam Present: intact Comments: Left upper chest surgical incision, dressing D&I. - Routine Neurological Exam Present: oriented X3 - Detailed Neurological Exam: Coma Scale Eye Opening: Spontaneous Verbal Response: Oriented Motor Response: Obey commands Kimi Coma Scale Total: 15 - Routine Psychiatric Exam Present: normal affect Results 06/12/18 06:54 06/14/18 17:54 Comprehensive Metabolic Panel 06/14/18 Range/Units 17:54 Sodium 139 (136-145) meq/L Potassium 3.9 (3.5-5.1) meq/L Chloride 107 (98-107) meq/L Carbon Dioxide 24.3 (21.0-32.0) meq/L BUN 13 (7-18) mg/dL Creatinine 0.74 (0.50-1.00) mg/dL Calcium 8.8 (8.5-10.1) mg/dL Intake and Output 06/14/18 06/15/18 06/15/18 22:59 06:59 14:59 Intake Total 1870 / 1870 1269.5 / 1269.5 Output Total 1700 / 1700 1500 / 1500 Balance 170 / 170 -230.5 / -230.5 Intake: IV 1750 / 1750 1029.5 / 1029.5 NS Inj 250 ML @ 0 mls/hr .ROUTE 250 / 250 .[facility] Rx#:[id number] NS Inj 1,000 ML @ 70 mls/hr IV. 1600 / 1600 CONT .[id number] [facility] Rx#:[id number] Vancomycin Inj 1,950 MG In NS 519.5 / 519.5 Inj 500 ML @ 250 mls/hr IV.SIG Q12H [facility] Rx#:[id number] Ancef 1 GM Premix Inj 3 gm In 150 / 150 150 ml @ 0 mls/hr IV.SIG .[facility]- [facility] Rx#:[id number] Ancef Inj 3,000 MG In NS Inj 260 / 260 100 ML @ 100 mls/hr IV.SIG Q8H [facility] Rx#:[id number] Oral 120 / 120 240 / 240 Output: Urine 1700 / 1700 1500 / 1500 Other: Weight 130.9 kg - Imaging and Cardiology Imaging: Impressions Chest X-Ray 06/14/18 00:00 CONCLUSION: Patchy airspace disease or atelectasis noted. No evidence of pneumothorax status post pacer placement. Assessment and Plan - Assessment (1) S/P placement of cardiac pacemaker Code(s): Z95.0 - Presence of cardiac pacemaker Status: Acute (2) Third degree heart block Code(s): I44.2 - Atrioventricular block, complete Status: Acute (3) Syncope Code(s): R55 - Syncope and collapse Status: Acute (4) Hypertension Code(s): I10 - Essential (primary) hypertension Status: Acute (5) Hyperlipidemia Code(s): E78.5 - Hyperlipidemia, unspecified Status: Acute (6) Obesity Code(s): E66.9 - Obesity, unspecified Status: Acute - Plan She is s/p dual chamber pacemaker placement, paced rhythm on telemetry. She remains stable s/p procedure. She can be discharged home from a cardiology standpoint. We will follow up in our office in 1-2 weeks after discharge from the hospital. The patient was seen and evaluated by Dr. Garcia who participated in care, management and decision making. - Attending Attestation Patient seen and examined. Nl pacer fx, wound stable. DC home. Will schedule outpt f/u. (3) Syncope Qualifiers: Syncope type: unspecified Qualified Code(s): R55 - Syncope and collapse
[2018-06-15] MEDS: Sod Chloride 0.9% Inj 1,000 ML IV.CONT SCH (16:26)
== END 2018-06-15 15:23 | disposition home or self-care (01) | DRG 243 ==
LOC: NEPE 14:10 → NEDA 14:10 → HCIS 23:55
PROVIDERS: ADMIT Hospitalist; ATTEND Hospitalist
DX: R55 Syncope and collapse; W18.2XXA Fall in (into) shower or empty bathtub, initial encounter; M25.569 Pain in unspecified knee; G89.29 Other chronic pain; R41.82 Altered mental status, unspecified; Y93.E1 Activity, personal bathing and showering; D72.829 Elevated white blood cell count, unspecified; I44.2 Atrioventricular block, complete; M16.0 Bilateral primary osteoarthritis of hip; I45.2 Bifascicular block; M25.559 Pain in unspecified hip; M85.80 Other specified disorders of bone density and structure, unspecified site; Z68.41 Body mass index [BMI] 40.0-44.9, adult; E78.5 Hyperlipidemia, unspecified; F17.210 Nicotine dependence, cigarettes, uncomplicated; R00.1 Bradycardia, unspecified; Y93.89 Activity, other specified; R68.84 Jaw pain; I10 Essential (primary) hypertension; I31.3 Pericardial effusion (noninflammatory); Z82.49 Family history of ischemic heart disease and other diseases of the circulatory system; E66.9 Obesity, unspecified; E87.6 Hypokalemia; I08.1 Rheumatic disorders of both mitral and tricuspid valves; Y92.002 Bathroom of unspecified non-institutional (private) residence as the place of occurrence of the external cause
CPT/HCPCS: 33208; 70450; 71010; 71045; 72125; 72170; 73552; 76937; 80048; 80053; 82550; 83735; 84443; 84484; 85025; 85610; 85730; 90774; 90784; 93005; 93306; 94150; 96374; 97162; 97530; 99285; C1785; C1898; C8952; J0690; J1100; J1580; J2001; J2270; J2405; J2704; J3010; J3370; J7030; J7040; J7050